=== PATIENT | female | born 1940 | race African-American/Black ===

== ENCOUNTER → 2017-01-13 | Outpatient (CLI) | payer MEDICARE, MEDICAID | END | disposition home or self-care (01) | LOC: CARD 01-06 09:53 | PROVIDERS: ATTEND Psychiatry & Neurology Neurology | DX: I69.30 Unspecified sequelae of cerebral infarction (principal) ==

== ENCOUNTER 2019-05-12 11:49 | Emergency (ER) | payer MEDICARE, MEDICAID ==
[~2019-05-12] VITALS: Ht 167.6 cm; Wt 78.0 kg
[~2019-05-12 11:49] MED LIST: ALLO100T MT; AMLO10TA80 MT; ATOR40TA70 MT; CLON0.2T MT; DOCU250C14 MT; FAMO20TA8 MT; FOLI-43 MT; HYDR100T26 MT; LEVE750T4 MT; LEVO75TA7 MT; LOSA100T32 MT; MONT10TA24 MT; NIFE20CA PO
[2019-05-12] MEDS ORDERED: IPRATROPIUM BROMIDE (0.02%) 0.5MG/2.5ML NEB HHN STA (12:07)
[2019-05-12] MEDS ORDERED: ALBUTEROL (0.083%) 2.5MG/3ML NEB HHN STA (12:07)
[2019-05-12 12:36] LABS: BASOPHILS % 0.5 % (0.0-2.0); EOSINOPHILS % 2.5 % (0.0-5.0); HEMATOCRIT. 29.2 % (36.0-48.0); HEMOGLOBIN. 9.4 g/dL (12.0-16.0); LYMPHOCYTES % 34.5 % (20.0-50.0); MEAN CORPUSCULAR HEMOGLOBIN 28.5 pg (28.0-32.0); MEAN CORPUSCULAR VOLUME 88.8 fL (81.0-99.0); MEAN PLATELET VOLUME 9.3 fl (7.4-10.4); MONOCYTES % 6.1 % (2.0-8.0); NEUTROPHILS % 56.4 % (40.0-76.0); PLATELET 142 x1000/uL (130-400); RED BLOOD CELL COUNT 3.28 mill/uL (4.2-5.4); RED CELL DISTRIBUTION WIDTH 17.4 % (11.6-14.6)
[2019-05-12 12:42] LABS: CHLORIDE 118 mEq/L (98-107)
[2019-05-12 15:03] VITALS: BP 140/51
== END 2019-05-12 15:04 | disposition home or self-care (01) ==
LOC: ER 12:54
DX: S09.8XXA Other specified injuries of head, initial encounter (principal); W01.198A Fall on same level from slipping, tripping and stumbling with subsequent striking against other object, initial encounter; Y93.01 Activity, walking, marching and hiking; Y92.018 Other place in single-family (private) house as the place of occurrence of the external cause; R03.0 Elevated blood-pressure reading, without diagnosis of hypertension; I69.354 Hemiplegia and hemiparesis following cerebral infarction affecting left non-dominant side; J45.909 Unspecified asthma, uncomplicated; I10 Essential (primary) hypertension
CPT/HCPCS: 36415; 70450; 70551; 71045; 80053; 84484; 85025; 85610; 93005; 94640; 99284; J7611

== ENCOUNTER 2019-10-06 20:00 | Inpatient (IN) | payer MEDICARE, MEDICAID ==
[~2019-10-06] VITALS: Ht 160 cm; Wt 84.8 kg
[~2019-10-06 20:00] MED LIST changes: -MONT10TA24 MT; +MONT10TA26 MT
[2019-10-06] MEDS ORDERED: ONDANSETRON HCL 4MG/2ML INJ IV STA (20:15)
[2019-10-06] MEDS ORDERED: METHYLPREDNISOLONE SOD SUCC 125 MG/2 ML VIAL IV STA (20:17)
[2019-10-06] MEDS ORDERED: IPRATROPIUM/ALBUTEROL 0.5-3(2.5)MG/3ML NEB HHN ONE (20:30)
[2019-10-06] MEDS ORDERED: LORAZEPAM 2MG/ML CPJ IV ONE (20:30)
[2019-10-06] MEDS ORDERED: MAGNESIUM 2 G PREMIX 50 ML IV ONE (20:30)
[2019-10-06] MEDS ORDERED: LEVOFLOXACIN 750MG PREMIX 150 ML IV ONE (20:30)
[2019-10-06 21:38] LABS: BASOPHILS % 0.5 % (0.0-2.0); EOSINOPHILS % 0.7 % (0.0-5.0); HEMATOCRIT. 32.3 % (36.0-48.0); HEMOGLOBIN. 10.5 g/dL (12.0-16.0); LYMPHOCYTES % 35.3 % (20.0-50.0); MEAN CORPUSCULAR HEMOGLOBIN 29.1 pg (28.0-32.0); MEAN CORPUSCULAR VOLUME 89.3 fL (81.0-99.0); MEAN PLATELET VOLUME 10.1 fl (7.4-10.4); MONOCYTES % 8.1 % (2.0-8.0); NEUTROPHILS % 55.4 % (40.0-76.0); PLATELET 167 x1000/uL (130-400); RED BLOOD CELL COUNT 3.61 mill/uL (4.2-5.4); RED CELL DISTRIBUTION WIDTH 16.7 % (11.6-14.6)
[2019-10-06 21:46] LABS: CHLORIDE 115 mEq/L (98-107)
[2019-10-06 21:51] LABS: ETHANOL BLOOD < 10 mg/dL
[2019-10-06 21:53] LABS: LDL CHOLESTEROL 81 mg/dL (5-100)
[2019-10-06 21:54] LABS: CREATINE KINASE 68 IU/L (26-192)
[2019-10-06 21:58] LABS: D-DIMER 3.54 mg/L FEU (<0.50); INR 1.1; PROTHROMBIN TIME 11.4 sec (9.6-11.0)
[2019-10-07 09:45] VITALS: BP 117/43
[2019-10-07 10:00] VITALS: BP 117/43
[2019-10-07] MEDS ORDERED: ACETAMINOPHEN 325MG TABLET PO PRN (10:00)
[2019-10-07] MEDS ORDERED: IPRATROPIUM/ALBUTEROL 0.5-3(2.5)MG/3ML NEB HHN PRN (10:00)
[2019-10-07] MEDS ORDERED: ONDANSETRON HCL 4MG/2ML INJ IV PRN (10:00)
[2019-10-07 12:00] VITALS: BP 120/70
[2019-10-07] MEDS: METHYLPREDNISOLONE SOD SUCC 40 MG/ML VIAL IV SCH ×3 (12:39→21:34)
[2019-10-07] MEDS: CLOPIDOGREL 75MG TABLET PO SCH (12:39)
[2019-10-07] MEDS: SODIUM CHLORIDE 0.45% 1,000 ML IV SCH (12:41)
[2019-10-07] MEDS: ENOXAPARIN 30MG/0.3ML SYR SUBCUT SCH (12:41)
[2019-10-07] MEDS ORDERED: SODIUM BICARBONATE 8.4% 1 MEQ/ML 50ML SYR IV SCH ×2 (13:00→14:00)
[2019-10-07] MEDS: IPRATROPIUM/ALBUTEROL 0.5-3(2.5)MG/3ML NEB HHN SCH ×3 (13:04→21:20)
[2019-10-07 13:22] LABS: BG BASE EXCESS -8.8 mmol/L (-2.0-2.0); BG CARBOXYHEMOGLOBIN 0.3 % (0.5-1.5); BG HCO3 ACT 16.5 mmol/L (22.0-26.0); BG METHEMOGLOBIN 0.3 % (0.0-1.5); BG OXYHEMOGLOBIN 95.4 % (94.0-97.0); BG PCO2 33.2 mmHg (35.0-45.0); BG PH 7.314 (7.350-7.450); BG PO2 88.8 mmHg (75.0-100.0); BG SAMPLE SITE RIGHT RADIAL; BG VENT MODE ROOM AIR
[2019-10-07] MEDS: CITRIC ACID/SODIUM CITRATE SOLN 15ML UDC PO SCH ×2 (13:59→17:52)
[2019-10-07] MEDS ORDERED: LEVO75TA7 MT (14:54)
[2019-10-07] MEDS ORDERED: AMLO10TA80 MT (14:54)
[2019-10-07] MEDS ORDERED: NIFE20CA PO (14:54)
[2019-10-07] MEDS ORDERED: ALLO100T MT (14:54)
[2019-10-07] MEDS ORDERED: CLON0.2T MT (14:54)
[2019-10-07] MEDS ORDERED: HYDR100T26 MT (14:54)
[2019-10-07] MEDS ORDERED: ATOR40TA70 MT (14:54)
[2019-10-07] MEDS ORDERED: DOCU250C14 MT (14:54)
[2019-10-07] MEDS ORDERED: LEVE750T4 MT (14:54)
[2019-10-07] MEDS ORDERED: FAMO20TA8 MT (14:54)
[2019-10-07] MEDS ORDERED: LOSA100T32 MT (14:54)
[2019-10-07] MEDS ORDERED: FOLI-43 MT (14:54)
[2019-10-07] MEDS ORDERED: MONT10TA26 MT (14:54)
[2019-10-07] MEDS ORDERED: SODIUM POLYSTYRENE SULFONATE 15 G/60 ML BOT PO SCH (15:00)
[2019-10-07] MEDS ORDERED: INSULIN REGULAR (HUMULIN R) UD 100 UNITS/ML SYR IV SCH (15:00)
[2019-10-07] MEDS ORDERED: CALCIUM GLUCONATE 1,000 MG in DEXT 5% WATER 90 ML IV SCH (15:00)
[2019-10-07] MEDS ORDERED: DEXTROSE 50% WATER 50ML SYRINGE IV SCH (15:00)
[2019-10-07 20:00] VITALS: BP 123/56
[2019-10-07] MEDS: ATORVASTATIN CALCIUM 40MG TABLET PO SCH (21:34)
[2019-10-07] MEDS: LEVETIRACETAM 500MG TABLET PO SCH (21:34)
[2019-10-07] MEDS: FAMOTIDINE 20MG TABLET PO SCH (21:34)
[2019-10-07] MEDS: CLONAZEPAM 0.5MG TABLET PO SCH (21:34)
[2019-10-08] VITALS: BP 137/49
[2019-10-08] MEDS: IPRATROPIUM/ALBUTEROL 0.5-3(2.5)MG/3ML NEB HHN SCH ×6 (00:43→21:13)
[2019-10-08 04:00] VITALS: BP 100/64
[2019-10-08] MEDS: METHYLPREDNISOLONE SOD SUCC 40 MG/ML VIAL IV SCH ×2 (05:08→13:57)
[2019-10-08] MEDS: SODIUM CHLORIDE 0.45% 1,000 ML IV SCH ×2 (05:08→13:57)
[2019-10-08] MEDS: CLONAZEPAM 0.5MG TABLET PO SCH ×3 (05:08→21:56)
[2019-10-08 07:08] LABS: BASOPHILS % 0.1 % (0.0-2.0); HEMATOCRIT. 27.3 % (36.0-48.0); HEMOGLOBIN. 8.9 g/dL (12.0-16.0); LYMPHOCYTES % 8.9 % (20.0-50.0); MEAN CORPUSCULAR HEMOGLOBIN 28.6 pg (28.0-32.0); MEAN CORPUSCULAR VOLUME 87.4 fL (81.0-99.0); MEAN PLATELET VOLUME 10.7 fl (7.4-10.4); MONOCYTES % 2.1 % (2.0-8.0); NEUTROPHILS % 88.9 % (40.0-76.0); PLATELET 122 x1000/uL (130-400); RED BLOOD CELL COUNT 3.12 mill/uL (4.2-5.4); RED CELL DISTRIBUTION WIDTH 16.5 % (11.6-14.6)
[2019-10-08 08:00] VITALS: BP 115/36
[2019-10-08] MEDS: CITRIC ACID/SODIUM CITRATE SOLN 15ML UDC PO SCH ×3 (08:49→17:46)
[2019-10-08] MEDS: CLOPIDOGREL 75MG TABLET PO SCH (08:49)
[2019-10-08] MEDS: LEVETIRACETAM 500MG TABLET PO SCH ×2 (08:49→21:56)
[2019-10-08] MEDS: ENOXAPARIN 30MG/0.3ML SYR SUBCUT SCH (08:50)
[2019-10-08 09:48] LABS: CHLORIDE 113 mEq/L (98-107)
[2019-10-08 09:57] LABS: PHOSPHORUS 5.2 mg/dL (2.5-4.9)
[2019-10-08 09:58] LABS: CREATINE KINASE 92 IU/L (26-192)
[2019-10-08 12:00] VITALS: BP 108/36
[2019-10-08] MEDS ORDERED: DEXTROSE 50% WATER 50ML SYRINGE IV PRN (12:45)
[2019-10-08 16:00] VITALS: BP 112/67
[2019-10-08] MEDS: BLOOD SUGAR DIAGNOSTIC STRIP TEST SCH ×2 (17:10→21:49)
[2019-10-08] MEDS: INSULIN LISPRO 100 UNITS/ML SUBCUT SCH ×2 (17:49→22:04)
[2019-10-08 20:00] VITALS: BP 120/43
[2019-10-08] MEDS: ATORVASTATIN CALCIUM 40MG TABLET PO SCH (21:56)
[2019-10-08] MEDS: FAMOTIDINE 20MG TABLET PO SCH (21:56)
[2019-10-09] VITALS: BP 116/66
[2019-10-09] MEDS: IPRATROPIUM/ALBUTEROL 0.5-3(2.5)MG/3ML NEB HHN SCH ×6 (00:43→21:38)
[2019-10-09 04:00] VITALS: BP 125/44
[2019-10-09] MEDS: BLOOD SUGAR DIAGNOSTIC STRIP TEST SCH ×4 (05:53→20:02)
[2019-10-09] MEDS: CLONAZEPAM 0.5MG TABLET PO SCH ×3 (06:19→21:49)
[2019-10-09] MEDS: INSULIN LISPRO 100 UNITS/ML SUBCUT SCH ×4 (06:22→20:16)
[2019-10-09 06:25] LABS: BASOPHILS % 0.1 % (0.0-2.0); HEMOGLOBIN. 8.9 g/dL (12.0-16.0); LYMPHOCYTES % 7.8 % (20.0-50.0); MEAN CORPUSCULAR HEMOGLOBIN 28.8 pg (28.0-32.0); MEAN CORPUSCULAR VOLUME 87.5 fL (81.0-99.0); MEAN PLATELET VOLUME 10.7 fl (7.4-10.4); MONOCYTES % 3.7 % (2.0-8.0); NEUTROPHILS % 88.4 % (40.0-76.0); PLATELET 123 x1000/uL (130-400); RED BLOOD CELL COUNT 3.08 mill/uL (4.2-5.4)
[2019-10-09 08:00] VITALS: BP 128/51
[2019-10-09] MEDS: PREDNISONE 20MG TABLET PO SCH (08:37)
[2019-10-09] MEDS: LEVETIRACETAM 500MG TABLET PO SCH ×2 (08:37→20:13)
[2019-10-09] MEDS: CLOPIDOGREL 75MG TABLET PO SCH (08:37)
[2019-10-09] MEDS: ENOXAPARIN 30MG/0.3ML SYR SUBCUT SCH (08:38)
[2019-10-09] MEDS: CITRIC ACID/SODIUM CITRATE SOLN 30ML UDC PO SCH ×3 (08:44→17:00)
[2019-10-09 12:00] VITALS: BP 113/60
[2019-10-09 16:00] VITALS: BP 128/92
[2019-10-09 20:00] VITALS: BP 129/52
[2019-10-09] MEDS: FAMOTIDINE 20MG TABLET PO SCH (20:13)
[2019-10-09] MEDS: ATORVASTATIN CALCIUM 40MG TABLET PO SCH (20:13)
[2019-10-09] MEDS: INSULIN GLARGINE UD 100 UNITS/ML SYR SUBCUT SCH (21:56)
[2019-10-10] VITALS (7 sets, daily range): BP systolic 111–159; BP diastolic 50–66
[2019-10-10] MEDS: IPRATROPIUM/ALBUTEROL 0.5-3(2.5)MG/3ML NEB HHN SCH ×6 (01:39→21:36)
[2019-10-10] MEDS: BLOOD SUGAR DIAGNOSTIC STRIP TEST SCH ×4 (06:18→21:25)
[2019-10-10] MEDS: CLONAZEPAM 0.5MG TABLET PO SCH ×3 (06:22→21:25)
[2019-10-10] MEDS: INSULIN LISPRO 100 UNITS/ML SUBCUT SCH ×4 (06:25→21:26)
[2019-10-10 06:30] LABS: HEMOGLOBIN. 8.4 g/dL (12.0-16.0); LYMPHOCYTES % 10.3 % (20.0-50.0); MEAN CORPUSCULAR HEMOGLOBIN 29.3 pg (28.0-32.0); MONOCYTES % 5.1 % (2.0-8.0); NEUTROPHILS % 84.6 % (40.0-76.0); PLATELET 113 x1000/uL (130-400); RED BLOOD CELL COUNT 2.87 mill/uL (4.2-5.4); RED CELL DISTRIBUTION WIDTH 16.8 % (11.6-14.6)
[2019-10-10] MEDS: PREDNISONE 20MG TABLET PO SCH (09:14)
[2019-10-10] MEDS: LEVETIRACETAM 500MG TABLET PO SCH ×2 (09:14→21:25)
[2019-10-10] MEDS: CLOPIDOGREL 75MG TABLET PO SCH (09:14)
[2019-10-10] MEDS: CITRIC ACID/SODIUM CITRATE SOLN 30ML UDC PO SCH ×3 (09:14→18:02)
[2019-10-10] MEDS: ENOXAPARIN 30MG/0.3ML SYR SUBCUT SCH (09:15)
[2019-10-10] MEDS: INSULIN GLARGINE UD 100 UNITS/ML SYR SUBCUT SCH ×2 (10:59→21:30)
[2019-10-10] MEDS: FAMOTIDINE 20MG TABLET PO SCH (21:25)
[2019-10-10] MEDS: ATORVASTATIN CALCIUM 40MG TABLET PO SCH (21:25)
== END 2019-10-10 23:25 | DRG 69 ==
LOC: ER 20:00 → 5WST 22:05 → EDBEDREQSVC 22:11 → EDBEDREQ 22:11 → EDBEDREQTM 22:11 → ENRESERV 10-07 08:02
PROVIDERS: ADMIT Internal Medicine; ATTEND Internal Medicine
DX: G45.9 Transient cerebral ischemic attack, unspecified (principal); G93.41 Metabolic encephalopathy; N17.9 Acute kidney failure, unspecified; R47.01 Aphasia; E44.0 Moderate protein-calorie malnutrition; E87.2 Acidosis; N18.9 Chronic kidney disease, unspecified; E11.22 Type 2 diabetes mellitus with diabetic chronic kidney disease; I12.9 Hypertensive chronic kidney disease with stage 1 through stage 4 chronic kidney disease, or unspecified chronic kidney disease; E87.5 Hyperkalemia; J44.9 Chronic obstructive pulmonary disease, unspecified; G40.909 Epilepsy, unspecified, not intractable, without status epilepticus; B19.20 Unspecified viral hepatitis C without hepatic coma; D64.9 Anemia, unspecified; E03.9 Hypothyroidism, unspecified; E66.9 Obesity, unspecified; E78.5 Hyperlipidemia, unspecified; K57.90 Diverticulosis of intestine, part unspecified, without perforation or abscess without bleeding; R26.89 Other abnormalities of gait and mobility; G31.89 Other specified degenerative diseases of nervous system; I27.20 Pulmonary hypertension, unspecified; I08.3 Combined rheumatic disorders of mitral, aortic and tricuspid valves; R32 Unspecified urinary incontinence; Z82.49 Family history of ischemic heart disease and other diseases of the circulatory system; Z68.33 Body mass index [BMI] 33.0-33.9, adult; Z88.0 Allergy status to penicillin; Z88.8 Allergy status to other drugs, medicaments and biological substances; Z88.6 Allergy status to analgesic agent; Z91.041 Radiographic dye allergy status; Z79.899 Other long term (current) drug therapy; Z93.0 Tracheostomy status; I69.320 Aphasia following cerebral infarction
CPT/HCPCS: 36415; 36600; 70551; 71045; 76770; 80048; 80053; 80320; 82140; 82375; 82550; 82805; 82962; 83605; 83721; 83735; 83880; 84100; 84132; 84443; 84484; 85025; 85379; 93005; 93306; 93970; 94640; 95816; 96365; 97162; 97530; 99291; J0610; J1650; J1815; J1956; J2060; J2405; J2920; J2930; J3475; J3490; J7060; J7512; G0480

== ENCOUNTER 2019-10-10 23:30 | Inpatient (IN) | payer MEDICARE, MEDICAID ==
[~2019-10-10] VITALS: Ht 160 cm; Wt 80.7 kg
[2019-10-10 23:30] VITALS: BP 139/68
[2019-10-11] MEDS ORDERED: INSULIN GLARGINE UD 100 UNITS/ML SYR SUBCUT SCH (01:30)
[2019-10-11] MEDS ORDERED: DEXTROSE 50% WATER 50ML SYRINGE IV PRN (01:30)
[2019-10-11] MEDS ORDERED: ONDANSETRON HCL 4MG TABLET PO PRN (01:45)
[2019-10-11] MEDS: IPRATROPIUM/ALBUTEROL 0.5-3(2.5)MG/3ML NEB HHN SCH ×5 (05:24→20:33)
[2019-10-11] MEDS: BLOOD SUGAR DIAGNOSTIC STRIP TEST SCH ×4 (05:54→21:53)
[2019-10-11] MEDS: CLONAZEPAM 1MG TABLET PO SCH ×3 (06:17→21:55)
[2019-10-11 08:00] VITALS: BP 176/63
[2019-10-11] MEDS: CLOPIDOGREL 75MG TABLET PO SCH (08:05)
[2019-10-11] MEDS: LEVETIRACETAM 500MG/5ML CUP PO SCH ×2 (08:05→22:39)
[2019-10-11] MEDS: INSULIN LISPRO 100 UNITS/ML SUBCUT SCH ×4 (08:16→22:37)
[2019-10-11] MEDS ORDERED: PREDNISONE 20MG TABLET PO SCH ×2 (09:00)
[2019-10-11] MEDS ORDERED: CITRIC ACID/SODIUM CITRATE SOLN 15ML UDC PO SCH (09:00)
[2019-10-11] MEDS: CITRIC ACID/SODIUM CITRATE SOLN 30ML UDC PO SCH ×3 (09:49→17:04)
[2019-10-11 09:53] LABS: HEMATOCRIT. 28.3 % (36.0-48.0); HEMOGLOBIN. 9.1 g/dL (12.0-16.0); MEAN CORPUSCULAR HEMOGLOBIN 28.2 pg (28.0-32.0); MEAN CORPUSCULAR VOLUME 87.2 fL (81.0-99.0); MEAN PLATELET VOLUME 11.2 fl (7.4-10.4); PLATELET 124 x1000/uL (130-400); RED BLOOD CELL COUNT 3.25 mill/uL (4.2-5.4); RED CELL DISTRIBUTION WIDTH 16.3 % (11.6-14.6)
[2019-10-11 09:54] LABS: HEMATOCRIT 27.6 % (36.0-48.0); HEMOGLOBIN 9.1 g/dL (12.0-16.0); MEAN CORPUSCULAR HEMOGLOBIN 28.5 pg (28.0-32.0); MEAN CORPUSCULAR VOLUME 86.9 fL (81.0-99.0); PLATELET 117 x1000/uL (130-400); RED BLOOD CELL COUNT 3.18 mill/uL (4.2-5.4); RED CELL DISTRIBUTION WIDTH 16.3 % (11.6-14.6)
[2019-10-11] MEDS: INSULIN GLARGINE UD 100 UNITS/ML SYR SUBCUT SCH ×2 (09:56→22:38)
[2019-10-11] MEDS: ENOXAPARIN 30MG/0.3ML SYR SUBCUT SCH (14:43)
[2019-10-11 16:57] LABS: PLATELET ESTIMATE NORMAL
[2019-10-11 19:39] LABS: TOTAL IRON BINDING CAPACITY 175 ug/dL (250-450)
[2019-10-11 20:00] VITALS: BP 161/66
[2019-10-11 21:00] VITALS: BP 133/66
[2019-10-11] MEDS: ATORVASTATIN CALCIUM 40MG TABLET PO SCH (22:34)
[2019-10-11] MEDS: FAMOTIDINE 20MG TABLET PO SCH (22:34)
[2019-10-12] MEDS: BUDESONIDE 0.5MG/2ML NEB HHN SCH ×2 (00:36→07:50)
[2019-10-12] MEDS: IPRATROPIUM/ALBUTEROL 0.5-3(2.5)MG/3ML NEB HHN SCH ×6 (00:36→20:24)
[2019-10-12 04:50] VITALS: BP 134/67
[2019-10-12] MEDS: INSULIN LISPRO 100 UNITS/ML SUBCUT SCH ×4 (06:36→21:00)
[2019-10-12] MEDS: BLOOD SUGAR DIAGNOSTIC STRIP TEST SCH ×4 (06:36→21:00)
[2019-10-12] MEDS: CLONAZEPAM 1MG TABLET PO SCH ×3 (06:37→21:59)
[2019-10-12 08:33] VITALS: BP 177/65
[2019-10-12] MEDS: LEVETIRACETAM 500MG/5ML CUP PO SCH ×2 (09:06→22:00)
[2019-10-12] MEDS: CLOPIDOGREL 75MG TABLET PO SCH (09:06)
[2019-10-12] MEDS: CITRIC ACID/SODIUM CITRATE SOLN 30ML UDC PO SCH ×3 (09:07→17:38)
[2019-10-12] MEDS: INSULIN GLARGINE UD 100 UNITS/ML SYR SUBCUT SCH ×2 (11:15→22:00)
[2019-10-12 12:48] LABS: HEMATOCRIT. 32.2 % (36.0-48.0); HEMOGLOBIN. 10.3 g/dL (12.0-16.0); MEAN CORPUSCULAR HEMOGLOBIN 28.6 pg (28.0-32.0); MEAN CORPUSCULAR VOLUME 89.9 fL (81.0-99.0); PLATELET 128 x1000/uL (130-400); RED BLOOD CELL COUNT 3.59 mill/uL (4.2-5.4); RED CELL DISTRIBUTION WIDTH 16.7 % (11.6-14.6)
[2019-10-12 13:47] LABS: PLATELET ESTIMATE SLIGHTLY DECREASED
[2019-10-12] MEDS: ENOXAPARIN 30MG/0.3ML SYR SUBCUT SCH (14:34)
[2019-10-12 20:00] VITALS: BP 157/61
[2019-10-12] MEDS: AMLODIPINE 5MG TABLET PO SCH (21:00)
[2019-10-12] MEDS: FAMOTIDINE 20MG TABLET PO SCH (21:59)
[2019-10-12] MEDS: ATORVASTATIN CALCIUM 40MG TABLET PO SCH (22:00)
[2019-10-13] MEDS: IPRATROPIUM/ALBUTEROL 0.5-3(2.5)MG/3ML NEB HHN SCH ×4 (00:43→11:16)
[2019-10-13] MEDS: BLOOD SUGAR DIAGNOSTIC STRIP TEST SCH ×4 (06:32→21:00)
[2019-10-13] MEDS: INSULIN LISPRO 100 UNITS/ML SUBCUT SCH ×4 (06:32→21:00)
[2019-10-13] MEDS: CLONAZEPAM 1MG TABLET PO SCH (06:32)
[2019-10-13 06:33] LABS: HEMATOCRIT. 34.5 % (36.0-48.0); HEMOGLOBIN. 11.3 g/dL (12.0-16.0); MEAN CORPUSCULAR HEMOGLOBIN 28.9 pg (28.0-32.0); MEAN CORPUSCULAR VOLUME 88.7 fL (81.0-99.0); MEAN PLATELET VOLUME 11.3 fl (7.4-10.4); PLATELET 119 x1000/uL (130-400); RED BLOOD CELL COUNT 3.89 mill/uL (4.2-5.4); RED CELL DISTRIBUTION WIDTH 16.6 % (11.6-14.6)
[2019-10-13] MEDS: BUDESONIDE 0.5MG/2ML NEB HHN SCH ×2 (07:39→20:18)
[2019-10-13 08:00] VITALS: BP 143/77
[2019-10-13 08:04] LABS: PLATELET ESTIMATE DECREASED
[2019-10-13] MEDS: IPRATROPIUM BROMIDE (0.02%) 0.5MG/2.5ML NEB HHN SCH ×3 (10:00→20:18)
[2019-10-13] MEDS: INSULIN GLARGINE UD 100 UNITS/ML SYR SUBCUT SCH ×2 (10:00→22:17)
[2019-10-13] MEDS: CITRIC ACID/SODIUM CITRATE SOLN 30ML UDC PO SCH ×3 (10:48→18:23)
[2019-10-13] MEDS: LEVETIRACETAM 500MG/5ML CUP PO SCH ×2 (10:49→22:00)
[2019-10-13] MEDS: ACETAMINOPHEN 650MG/20.3ML UDC PO PRN (10:49)
[2019-10-13] MEDS: AMLODIPINE 5MG TABLET PO SCH ×2 (10:50→22:18)
[2019-10-13] MEDS: CLOPIDOGREL 75MG TABLET PO SCH (10:50)
[2019-10-13 11:10] LABS: CHLORIDE 109 mEq/L (98-107)
[2019-10-13] MEDS: LEVOTHYROXINE SODIUM 50MCG TABLET PO SCH (11:15)
[2019-10-13] MEDS: ALLOPURINOL 100 MG TABLET PO SCH (11:15)
[2019-10-13 11:18] LABS: PHOSPHORUS 4.2 mg/dL (2.5-4.9)
[2019-10-13 11:43] LABS: BG BASE EXCESS -3.4 mmol/L (-2.0-2.0); BG CARBOXYHEMOGLOBIN 0.3 % (0.5-1.5); BG DEOXYHEMOGLOBIN 4.1 % (0.0-5.0); BG HCO3 ACT 21.5 mmol/L (22.0-26.0); BG METHEMOGLOBIN 0.1 % (0.0-1.5); BG OXYGEN SATURATION 95.9 % (92.0-98.5); BG OXYHEMOGLOBIN 95.5 % (94.0-97.0); BG PH 7.371 (7.350-7.450); BG PO2 89.4 mmHg (75.0-100.0); BG SAMPLE SITE RIGHT RADIAL; BG TOTAL HEMOGLOBIN 10.4 g/dL (12.0-18.0); BG VENT MODE NASAL CANNULA
[2019-10-13] MEDS ORDERED: LIDOCAINE HCL/PF 1% 2ML VIAL ONE (12:17)
[2019-10-13 12:18] LABS: HEMATOCRIT. 31.4 % (36.0-48.0); HEMOGLOBIN. 10.1 g/dL (12.0-16.0); MEAN CORPUSCULAR HEMOGLOBIN 28.8 pg (28.0-32.0); MEAN CORPUSCULAR VOLUME 89.1 fL (81.0-99.0); MEAN PLATELET VOLUME 10.4 fl (7.4-10.4); PLATELET 93 x1000/uL (130-400); RED BLOOD CELL COUNT 3.52 mill/uL (4.2-5.4); RED CELL DISTRIBUTION WIDTH 16.6 % (11.6-14.6)
[2019-10-13 12:49] LABS: PLATELET ESTIMATE DECREASED
[2019-10-13] MEDS: DEXT 5%/0.45% NACL 1000ML 1,000 ML IV SCH (14:29)
[2019-10-13] MEDS: ENOXAPARIN 30MG/0.3ML SYR SUBCUT SCH (14:29)
[2019-10-13] MEDS: FUROSEMIDE 40MG/4ML VIAL IVP SCH (14:30)
[2019-10-13 14:40] VITALS: BP 128/56
[2019-10-13 18:36] LABS: CLARITY URINE CLOUDY (CLEAR); COLOR URINE YELLOW (YELLOW); KETONES URINE NEGATIVE (NEGATIVE); LEUKOCYTE ESTERASE URINE 1+ (NEGATIVE); NITRITE URINE NEGATIVE (NEGATIVE); OCCULT BLOOD URINE NEGATIVE (NEGATIVE); PROTEIN URINE 3+ (NEGATIVE); SPECIFIC GRAVITY URINE 1.013 (1.005-1.030); UROBILINOGEN URINE 0.2 E.U./dL (0.2-1.0)
[2019-10-13 21:00] VITALS: BP 164/41
[2019-10-13] MEDS: ATORVASTATIN CALCIUM 40MG TABLET PO SCH (22:00)
[2019-10-13] MEDS: FAMOTIDINE 20MG TABLET PO SCH (22:00)
[2019-10-14] VITALS: BP 135/70
[2019-10-14] MEDS: IPRATROPIUM BROMIDE (0.02%) 0.5MG/2.5ML NEB HHN SCH ×4 (01:56→19:56)
[2019-10-14] MEDS: LEVOTHYROXINE SODIUM 50MCG TABLET PO SCH (06:02)
[2019-10-14] MEDS: BLOOD SUGAR DIAGNOSTIC STRIP TEST SCH ×4 (06:32→21:48)
[2019-10-14] MEDS: INSULIN LISPRO 100 UNITS/ML SUBCUT SCH ×4 (06:33→21:00)
[2019-10-14] MEDS: DEXT 5%/0.45% NACL 1000ML 1,000 ML IV SCH (06:43)
[2019-10-14] MEDS ORDERED: LEVOFLOXACIN 250MG PREMIX 50 ML IV SCH ×2 (08:15→10:00)
[2019-10-14 08:31] VITALS: BP 167/62
[2019-10-14] MEDS: CITRIC ACID/SODIUM CITRATE SOLN 30ML UDC PO SCH ×3 (09:46→17:06)
[2019-10-14] MEDS: LEVETIRACETAM 500MG/5ML CUP PO SCH ×2 (09:46→21:47)
[2019-10-14] MEDS: ALLOPURINOL 100 MG TABLET PO SCH (09:46)
[2019-10-14] MEDS: FUROSEMIDE 40MG/4ML VIAL IVP SCH (09:46)
[2019-10-14] MEDS: CLOPIDOGREL 75MG TABLET PO SCH (09:46)
[2019-10-14] MEDS: AMLODIPINE 5MG TABLET PO SCH ×2 (09:47→21:45)
[2019-10-14] MEDS: INSULIN GLARGINE UD 100 UNITS/ML SYR SUBCUT SCH ×2 (10:34→22:00)
[2019-10-14 12:52] LABS: BASOPHILS % 0.3 % (0.0-2.0); EOSINOPHILS % 1.8 % (0.0-5.0); HEMATOCRIT. 25.8 % (36.0-48.0); HEMOGLOBIN. 8.5 g/dL (12.0-16.0); LYMPHOCYTES % 17.1 % (20.0-50.0); MEAN CORPUSCULAR HEMOGLOBIN 29.2 pg (28.0-32.0); MEAN CORPUSCULAR VOLUME 88.7 fL (81.0-99.0); MEAN PLATELET VOLUME 10.3 fl (7.4-10.4); MONOCYTES % 12.7 % (2.0-8.0); NEUTROPHILS % 68.1 % (40.0-76.0); PLATELET 58 x1000/uL (130-400); RED BLOOD CELL COUNT 2.91 mill/uL (4.2-5.4); RED CELL DISTRIBUTION WIDTH 16.1 % (11.6-14.6)
[2019-10-14] MEDS: CLONIDINE 0.1MG TABLET PO SCH ×2 (17:10→21:46)
[2019-10-14] MEDS: BUDESONIDE 0.5MG/2ML NEB HHN SCH (19:54)
[2019-10-14 20:00] VITALS: BP 132/60
[2019-10-14] MEDS: FAMOTIDINE 20MG TABLET PO SCH (21:45)
[2019-10-14] MEDS: ATORVASTATIN CALCIUM 40MG TABLET PO SCH (21:45)
[2019-10-14] MEDS: GUAIFENESIN-DM 200MG-20MG/10ML UDC PO PRN (21:47)
[2019-10-15] MEDS: IPRATROPIUM BROMIDE (0.02%) 0.5MG/2.5ML NEB HHN SCH ×5 (00:45→15:34)
[2019-10-15] MEDS: BLOOD SUGAR DIAGNOSTIC STRIP TEST SCH ×4 (06:32→20:06)
[2019-10-15] MEDS: LEVOTHYROXINE SODIUM 50MCG TABLET PO SCH (06:33)
[2019-10-15 07:29] LABS: HEMATOCRIT. 25.4 % (36.0-48.0); HEMOGLOBIN. 8.4 g/dL (12.0-16.0); MEAN CORPUSCULAR HEMOGLOBIN 28.9 pg (28.0-32.0); MEAN CORPUSCULAR VOLUME 87.7 fL (81.0-99.0); MEAN PLATELET VOLUME 11.1 fl (7.4-10.4); PLATELET 77 x1000/uL (130-400)
[2019-10-15] MEDS: BUDESONIDE 0.5MG/2ML NEB HHN SCH (08:13)
[2019-10-15 08:27] VITALS: BP 151/74
[2019-10-15] MEDS: INSULIN LISPRO 100 UNITS/ML SUBCUT SCH ×4 (09:00→20:18)
[2019-10-15] MEDS: LEVETIRACETAM 500MG/5ML CUP PO SCH ×2 (09:19→20:05)
[2019-10-15] MEDS: CLONIDINE 0.1MG TABLET PO SCH ×2 (09:19→20:06)
[2019-10-15] MEDS: AMLODIPINE 5MG TABLET PO SCH ×2 (09:19→20:05)
[2019-10-15] MEDS: CITRIC ACID/SODIUM CITRATE SOLN 30ML UDC PO SCH ×3 (09:19→16:24)
[2019-10-15] MEDS: ALLOPURINOL 100 MG TABLET PO SCH (09:19)
[2019-10-15] MEDS: CLOPIDOGREL 75MG TABLET PO SCH (09:19)
[2019-10-15] MEDS: INSULIN GLARGINE UD 100 UNITS/ML SYR SUBCUT SCH ×2 (09:26→21:27)
[2019-10-15 10:37] LABS: PLATELET ESTIMATE DECREASED
[2019-10-15] MEDS: LEVOFLOXACIN 250MG TABLET PO SCH (11:34)
[2019-10-15 20:00] VITALS: BP 165/72
[2019-10-15] MEDS: FAMOTIDINE 20MG TABLET PO SCH (20:05)
[2019-10-15] MEDS: ATORVASTATIN CALCIUM 40MG TABLET PO SCH (20:05)
[2019-10-15 22:00] VITALS: BP 148/74
[2019-10-16] MEDS: IPRATROPIUM BROMIDE (0.02%) 0.5MG/2.5ML NEB HHN SCH ×7 (01:10→22:03)
[2019-10-16] MEDS: BLOOD SUGAR DIAGNOSTIC STRIP TEST SCH ×4 (05:36→20:50)
[2019-10-16] MEDS: LEVOTHYROXINE SODIUM 50MCG TABLET PO SCH (06:06)
[2019-10-16] MEDS: INSULIN LISPRO 100 UNITS/ML SUBCUT SCH ×4 (06:27→20:57)
[2019-10-16] MEDS: LEVETIRACETAM 500MG/5ML CUP PO SCH ×2 (08:24→20:49)
[2019-10-16] MEDS: CITRIC ACID/SODIUM CITRATE SOLN 30ML UDC PO SCH ×3 (08:24→16:56)
[2019-10-16] MEDS: CLONIDINE 0.1MG TABLET PO SCH ×2 (08:25→20:50)
[2019-10-16] MEDS: AMLODIPINE 5MG TABLET PO SCH ×2 (08:25→20:49)
[2019-10-16] MEDS: CLOPIDOGREL 75MG TABLET PO SCH (08:25)
[2019-10-16] MEDS: ALLOPURINOL 100 MG TABLET PO SCH (08:25)
[2019-10-16 08:27] VITALS: BP 164/57
[2019-10-16] MEDS: INSULIN GLARGINE UD 100 UNITS/ML SYR SUBCUT SCH ×2 (09:39→21:34)
[2019-10-16] MEDS: LEVOFLOXACIN 250MG TABLET PO SCH (10:27)
[2019-10-16 20:00] VITALS: BP 146/46
[2019-10-16] MEDS: ATORVASTATIN CALCIUM 40MG TABLET PO SCH (20:49)
[2019-10-16] MEDS: FAMOTIDINE 20MG TABLET PO SCH (20:50)
[2019-10-17] MEDS: GUAIFENESIN-DM 200MG-20MG/10ML UDC PO PRN ×2 (01:05→21:45)
[2019-10-17] MEDS: BLOOD SUGAR DIAGNOSTIC STRIP TEST SCH ×4 (05:42→21:15)
[2019-10-17] MEDS: LEVOTHYROXINE SODIUM 50MCG TABLET PO SCH (06:20)
[2019-10-17] MEDS: INSULIN LISPRO 100 UNITS/ML SUBCUT SCH ×4 (06:23→21:44)
[2019-10-17 06:38] LABS: BASOPHILS % 0.2 % (0.0-2.0); EOSINOPHILS % 2.4 % (0.0-5.0); HEMATOCRIT. 25.7 % (36.0-48.0); HEMOGLOBIN. 8.5 g/dL (12.0-16.0); MEAN CORPUSCULAR HEMOGLOBIN 29.2 pg (28.0-32.0); MEAN CORPUSCULAR VOLUME 88.2 fL (81.0-99.0); MONOCYTES % 12.4 % (2.0-8.0); PLATELET 74 x1000/uL (130-400); RED BLOOD CELL COUNT 2.92 mill/uL (4.2-5.4); RED CELL DISTRIBUTION WIDTH 15.8 % (11.6-14.6)
[2019-10-17] MEDS: IPRATROPIUM BROMIDE (0.02%) 0.5MG/2.5ML NEB HHN SCH ×4 (07:41→21:34)
[2019-10-17] MEDS: CLONIDINE 0.1MG TABLET PO SCH ×2 (08:45→20:53)
[2019-10-17] MEDS: LEVETIRACETAM 500MG/5ML CUP PO SCH ×2 (08:45→20:53)
[2019-10-17] MEDS: CITRIC ACID/SODIUM CITRATE SOLN 30ML UDC PO SCH ×3 (08:45→17:16)
[2019-10-17] MEDS: ALLOPURINOL 100 MG TABLET PO SCH (08:46)
[2019-10-17] MEDS: CLOPIDOGREL 75MG TABLET PO SCH (08:46)
[2019-10-17] MEDS: AMLODIPINE 5MG TABLET PO SCH ×2 (08:46→20:53)
[2019-10-17 08:56] VITALS: BP 164/52
[2019-10-17] MEDS: INSULIN GLARGINE UD 100 UNITS/ML SYR SUBCUT SCH ×2 (10:15→21:45)
[2019-10-17 10:46] VITALS: BP 138/63
[2019-10-17 20:00] VITALS: BP 144/57
[2019-10-17] MEDS: ATORVASTATIN CALCIUM 40MG TABLET PO SCH (20:53)
[2019-10-17] MEDS: FAMOTIDINE 20MG TABLET PO SCH (20:53)
[2019-10-18] MEDS: IPRATROPIUM BROMIDE (0.02%) 0.5MG/2.5ML NEB HHN SCH ×6 (01:21→20:59)
[2019-10-18] MEDS: BLOOD SUGAR DIAGNOSTIC STRIP TEST SCH ×4 (06:22→21:00)
[2019-10-18] MEDS: INSULIN LISPRO 100 UNITS/ML SUBCUT SCH ×4 (06:23→21:00)
[2019-10-18] MEDS: LEVOTHYROXINE SODIUM 50MCG TABLET PO SCH (06:23)
[2019-10-18 07:47] VITALS: BP 139/52
[2019-10-18] MEDS: LEVETIRACETAM 500MG/5ML CUP PO SCH ×2 (08:23→21:54)
[2019-10-18] MEDS: AMLODIPINE 5MG TABLET PO SCH ×2 (08:23→21:54)
[2019-10-18] MEDS: CITRIC ACID/SODIUM CITRATE SOLN 30ML UDC PO SCH (08:23)
[2019-10-18] MEDS: CLOPIDOGREL 75MG TABLET PO SCH (08:23)
[2019-10-18] MEDS: CLONIDINE 0.1MG TABLET PO SCH ×2 (08:23→22:33)
[2019-10-18] MEDS: ALLOPURINOL 100 MG TABLET PO SCH (08:23)
[2019-10-18] MEDS: LEVOFLOXACIN 250MG TABLET PO SCH (10:07)
[2019-10-18] MEDS: INSULIN GLARGINE UD 100 UNITS/ML SYR SUBCUT SCH ×2 (10:11→22:00)
[2019-10-18] MEDS: BUDESONIDE 0.5MG/2ML NEB HHN SCH ×2 (11:02→20:59)
[2019-10-18] MEDS ORDERED: GUAIFENESIN 200MG/10ML SUGAR FREE UDC PO NR (11:45)
[2019-10-18 16:45] LABS: BASOPHILS % 0.2 % (0.0-2.0); EOSINOPHILS % 2.3 % (0.0-5.0); HEMATOCRIT. 27.3 % (36.0-48.0); HEMOGLOBIN. 8.9 g/dL (12.0-16.0); LYMPHOCYTES % 25.7 % (20.0-50.0); MEAN CORPUSCULAR HEMOGLOBIN 29.1 pg (28.0-32.0); MEAN PLATELET VOLUME 10.5 fl (7.4-10.4); MONOCYTES % 11.6 % (2.0-8.0); NEUTROPHILS % 60.2 % (40.0-76.0); PLATELET 72 x1000/uL (130-400); RED BLOOD CELL COUNT 3.07 mill/uL (4.2-5.4); RED CELL DISTRIBUTION WIDTH 15.9 % (11.6-14.6)
[2019-10-18] MEDS: GUAIFENESIN 200MG/10ML SUGAR FREE UDC PO PRN (16:53)
[2019-10-18 20:00] VITALS: BP 137/60
[2019-10-18] MEDS: ATORVASTATIN CALCIUM 40MG TABLET PO SCH (21:54)
[2019-10-18] MEDS: FAMOTIDINE 20MG TABLET PO SCH (21:54)
[2019-10-19] MEDS: IPRATROPIUM BROMIDE (0.02%) 0.5MG/2.5ML NEB HHN SCH ×5 (00:19→22:30)
[2019-10-19] MEDS: BLOOD SUGAR DIAGNOSTIC STRIP TEST SCH ×4 (06:06→21:37)
[2019-10-19] MEDS: INSULIN LISPRO 100 UNITS/ML SUBCUT SCH ×4 (06:07→21:00)
[2019-10-19] MEDS: LEVOTHYROXINE SODIUM 50MCG TABLET PO SCH (06:17)
[2019-10-19 06:18] LABS: BASOPHILS % 0.2 % (0.0-2.0); EOSINOPHILS % 1.9 % (0.0-5.0); HEMATOCRIT. 24.9 % (36.0-48.0); HEMOGLOBIN. 8.1 g/dL (12.0-16.0); LYMPHOCYTES % 28.3 % (20.0-50.0); MEAN CORPUSCULAR HEMOGLOBIN 28.9 pg (28.0-32.0); MEAN CORPUSCULAR VOLUME 88.7 fL (81.0-99.0); MEAN PLATELET VOLUME 11.7 fl (7.4-10.4); NEUTROPHILS % 59.6 % (40.0-76.0); PLATELET 80 x1000/uL (130-400); RED BLOOD CELL COUNT 2.81 mill/uL (4.2-5.4); RED CELL DISTRIBUTION WIDTH 15.8 % (11.6-14.6)
[2019-10-19] MEDS: AMLODIPINE 5MG TABLET PO SCH ×2 (08:14→21:00)
[2019-10-19] MEDS: CLONIDINE 0.1MG TABLET PO SCH ×2 (08:14→21:00)
[2019-10-19] MEDS: LEVETIRACETAM 500MG/5ML CUP PO SCH ×2 (08:14→21:30)
[2019-10-19] MEDS: CLOPIDOGREL 75MG TABLET PO SCH (08:14)
[2019-10-19] MEDS: ALLOPURINOL 100 MG TABLET PO SCH (08:14)
[2019-10-19 08:25] VITALS: BP 145/61
[2019-10-19] MEDS: BUDESONIDE 0.5MG/2ML NEB HHN SCH ×2 (10:31→22:30)
[2019-10-19] MEDS: FUROSEMIDE 20MG TABLET PO SCH (11:05)
[2019-10-19] MEDS: GUAIFENESIN 200MG/10ML SUGAR FREE UDC PO PRN ×2 (11:05→21:30)
[2019-10-19] MEDS: INSULIN GLARGINE UD 100 UNITS/ML SYR SUBCUT SCH ×2 (11:07→21:51)
[2019-10-19] MEDS: FOLIC ACID/VITAMIN B COMP W-C TABLET PO SCH (13:04)
[2019-10-19 20:00] VITALS: BP 108/42
[2019-10-19] MEDS: FAMOTIDINE 20MG TABLET PO SCH (21:30)
[2019-10-19] MEDS: ATORVASTATIN CALCIUM 40MG TABLET PO SCH (21:30)
[2019-10-20] MEDS: IPRATROPIUM BROMIDE (0.02%) 0.5MG/2.5ML NEB HHN SCH ×3 (02:12→07:56)
[2019-10-20] MEDS: BLOOD SUGAR DIAGNOSTIC STRIP TEST SCH ×4 (05:59→21:00)
[2019-10-20] MEDS: LEVOTHYROXINE SODIUM 50MCG TABLET PO SCH (06:00)
[2019-10-20 07:18] LABS: BASOPHILS % 0.2 % (0.0-2.0); EOSINOPHILS % 1.5 % (0.0-5.0); HEMATOCRIT. 27.4 % (36.0-48.0); HEMOGLOBIN. 8.9 g/dL (12.0-16.0); LYMPHOCYTES % 24.5 % (20.0-50.0); MEAN CORPUSCULAR HEMOGLOBIN 28.9 pg (28.0-32.0); MEAN CORPUSCULAR VOLUME 88.6 fL (81.0-99.0); MEAN PLATELET VOLUME 11.3 fl (7.4-10.4); MONOCYTES % 7.5 % (2.0-8.0); NEUTROPHILS % 66.3 % (40.0-76.0); PLATELET 98 x1000/uL (130-400); RED BLOOD CELL COUNT 3.09 mill/uL (4.2-5.4); RED CELL DISTRIBUTION WIDTH 15.8 % (11.6-14.6)
[2019-10-20] MEDS: BUDESONIDE 0.5MG/2ML NEB HHN SCH ×2 (07:54→19:45)
[2019-10-20 08:00] VITALS: BP 145/49
[2019-10-20] MEDS: INSULIN LISPRO 100 UNITS/ML SUBCUT SCH ×4 (09:00→21:00)
[2019-10-20] MEDS: FUROSEMIDE 20MG TABLET PO SCH (09:21)
[2019-10-20] MEDS: FOLIC ACID/VITAMIN B COMP W-C TABLET PO SCH (09:21)
[2019-10-20] MEDS: CLOPIDOGREL 75MG TABLET PO SCH (09:21)
[2019-10-20] MEDS: LEVETIRACETAM 500MG/5ML CUP PO SCH ×2 (09:21→22:28)
[2019-10-20] MEDS: AMLODIPINE 5MG TABLET PO SCH ×2 (09:22→22:27)
[2019-10-20] MEDS: ALLOPURINOL 100 MG TABLET PO SCH (09:22)
[2019-10-20] MEDS: CLONIDINE 0.1MG TABLET PO SCH ×2 (09:22→22:27)
[2019-10-20] MEDS: PREDNISONE 20MG TABLET PO SCH (09:22)
[2019-10-20] MEDS: INSULIN GLARGINE UD 100 UNITS/ML SYR SUBCUT SCH ×2 (09:29→22:54)
[2019-10-20] MEDS: LEVOFLOXACIN 250MG TABLET PO SCH (11:21)
[2019-10-20] MEDS: IPRATROPIUM/ALBUTEROL 0.5-3(2.5)MG/3ML NEB HHN SCH ×4 (12:05→23:56)
[2019-10-20] MEDS: GUAIFENESIN 200MG/10ML SUGAR FREE UDC PO PRN (18:30)
[2019-10-20 20:00] VITALS: BP 144/57
[2019-10-20] MEDS: FAMOTIDINE 20MG TABLET PO SCH (22:26)
[2019-10-20] MEDS: ATORVASTATIN CALCIUM 40MG TABLET PO SCH (22:27)
[2019-10-21] MEDS: IPRATROPIUM/ALBUTEROL 0.5-3(2.5)MG/3ML NEB HHN SCH ×5 (04:00→20:10)
[2019-10-21] MEDS: BLOOD SUGAR DIAGNOSTIC STRIP TEST SCH ×4 (06:36→21:40)
[2019-10-21] MEDS: LEVOTHYROXINE SODIUM 50MCG TABLET PO SCH (06:36)
[2019-10-21] MEDS: INSULIN LISPRO 100 UNITS/ML SUBCUT SCH ×4 (06:39→21:55)
[2019-10-21 07:31] LABS: BASOPHILS % 0.1 % (0.0-2.0); HEMATOCRIT. 24.6 % (36.0-48.0); HEMOGLOBIN. 8.1 g/dL (12.0-16.0); LYMPHOCYTES % 9.6 % (20.0-50.0); MEAN CORPUSCULAR HEMOGLOBIN 28.9 pg (28.0-32.0); MEAN CORPUSCULAR VOLUME 87.6 fL (81.0-99.0); MEAN PLATELET VOLUME 10.8 fl (7.4-10.4); MONOCYTES % 3.7 % (2.0-8.0); NEUTROPHILS % 86.6 % (40.0-76.0); PLATELET 95 x1000/uL (130-400); RED BLOOD CELL COUNT 2.81 mill/uL (4.2-5.4); RED CELL DISTRIBUTION WIDTH 15.8 % (11.6-14.6)
[2019-10-21] MEDS: BUDESONIDE 0.5MG/2ML NEB HHN SCH (08:21)
[2019-10-21 08:54] VITALS: BP 157/52
[2019-10-21] MEDS: CLONIDINE 0.1MG TABLET PO SCH ×2 (09:58→21:00)
[2019-10-21] MEDS: CLOPIDOGREL 75MG TABLET PO SCH (09:58)
[2019-10-21] MEDS: LEVETIRACETAM 500MG/5ML CUP PO SCH ×2 (09:58→21:40)
[2019-10-21] MEDS: PREDNISONE 20MG TABLET PO SCH (09:58)
[2019-10-21] MEDS: AMLODIPINE 5MG TABLET PO SCH ×2 (09:59→21:00)
[2019-10-21] MEDS: FUROSEMIDE 20MG TABLET PO SCH (09:59)
[2019-10-21] MEDS: FOLIC ACID/VITAMIN B COMP W-C TABLET PO SCH (09:59)
[2019-10-21] MEDS: ALLOPURINOL 100 MG TABLET PO SCH (09:59)
[2019-10-21] MEDS: INSULIN GLARGINE UD 100 UNITS/ML SYR SUBCUT SCH ×2 (13:26→21:56)
[2019-10-21 20:00] VITALS: BP 108/72
[2019-10-21] MEDS: ATORVASTATIN CALCIUM 40MG TABLET PO SCH (21:40)
[2019-10-21] MEDS: FAMOTIDINE 20MG TABLET PO SCH (21:40)
[2019-10-22] MEDS: IPRATROPIUM/ALBUTEROL 0.5-3(2.5)MG/3ML NEB HHN SCH ×7 (00:28→23:53)
[2019-10-22] MEDS: BLOOD SUGAR DIAGNOSTIC STRIP TEST SCH ×4 (05:49→20:16)
[2019-10-22] MEDS: LEVOTHYROXINE SODIUM 50MCG TABLET PO SCH (06:06)
[2019-10-22] MEDS: INSULIN LISPRO 100 UNITS/ML SUBCUT SCH ×4 (06:07→20:28)
[2019-10-22 08:00] VITALS: BP 171/77
[2019-10-22] MEDS: ALLOPURINOL 100 MG TABLET PO SCH (09:27)
[2019-10-22] MEDS: PREDNISONE 20MG TABLET PO SCH (09:27)
[2019-10-22] MEDS: LEVETIRACETAM 500MG/5ML CUP PO SCH ×2 (09:27→20:15)
[2019-10-22] MEDS: CLOPIDOGREL 75MG TABLET PO SCH (09:27)
[2019-10-22] MEDS: FUROSEMIDE 20MG TABLET PO SCH (09:27)
[2019-10-22] MEDS: CLONIDINE 0.1MG TABLET PO SCH ×2 (09:28→20:16)
[2019-10-22] MEDS: FOLIC ACID/VITAMIN B COMP W-C TABLET PO SCH (09:28)
[2019-10-22] MEDS: AMLODIPINE 5MG TABLET PO SCH ×2 (09:28→20:16)
[2019-10-22 09:33] LABS: BASOPHILS % 0.1 % (0.0-2.0); HEMATOCRIT. 24.9 % (36.0-48.0); HEMOGLOBIN. 8.1 g/dL (12.0-16.0); LYMPHOCYTES % 11.6 % (20.0-50.0); MEAN CORPUSCULAR HEMOGLOBIN 28.4 pg (28.0-32.0); MEAN PLATELET VOLUME 11.2 fl (7.4-10.4); MONOCYTES % 3.7 % (2.0-8.0); NEUTROPHILS % 84.6 % (40.0-76.0); PLATELET 104 x1000/uL (130-400); RED BLOOD CELL COUNT 2.86 mill/uL (4.2-5.4); RED CELL DISTRIBUTION WIDTH 15.6 % (11.6-14.6)
[2019-10-22] MEDS: GUAIFENESIN 200MG/10ML SUGAR FREE UDC PO PRN (09:33)
[2019-10-22] MEDS ORDERED: GUAIFENESIN-DM 200MG-20MG/10ML UDC PO PRN (10:00)
[2019-10-22] MEDS: INSULIN GLARGINE UD 100 UNITS/ML SYR SUBCUT SCH ×2 (10:17→21:38)
[2019-10-22] MEDS: BENZONATATE 100MG CAPSULE PO SCH ×2 (10:19→17:30)
[2019-10-22] MEDS: LEVOFLOXACIN 250MG TABLET PO SCH (10:19)
[2019-10-22 20:00] VITALS: BP 144/53
[2019-10-22] MEDS: ACETAMINOPHEN 650MG/20.3ML UDC PO PRN (20:16)
[2019-10-22] MEDS: ATORVASTATIN CALCIUM 40MG TABLET PO SCH (20:16)
[2019-10-22] MEDS: FAMOTIDINE 20MG TABLET PO SCH (20:16)
[2019-10-23] MEDS: BENZONATATE 100MG CAPSULE PO SCH ×4 (01:19→22:01)
[2019-10-23] MEDS: IPRATROPIUM/ALBUTEROL 0.5-3(2.5)MG/3ML NEB HHN SCH ×5 (03:43→21:11)
[2019-10-23] MEDS: LEVOTHYROXINE SODIUM 50MCG TABLET PO SCH (05:56)
[2019-10-23] MEDS: BLOOD SUGAR DIAGNOSTIC STRIP TEST SCH ×4 (05:56→21:00)
[2019-10-23] MEDS: INSULIN LISPRO 100 UNITS/ML SUBCUT SCH ×4 (06:03→22:08)
[2019-10-23 06:58] LABS: HEMOGLOBIN. 7.8 g/dL (12.0-16.0); LYMPHOCYTES % 10.4 % (20.0-50.0); MEAN CORPUSCULAR HEMOGLOBIN 28.6 pg (28.0-32.0); MEAN CORPUSCULAR VOLUME 87.5 fL (81.0-99.0); MEAN PLATELET VOLUME 11.6 fl (7.4-10.4); MONOCYTES % 3.6 % (2.0-8.0); PLATELET 111 x1000/uL (130-400); RED BLOOD CELL COUNT 2.74 mill/uL (4.2-5.4); RED CELL DISTRIBUTION WIDTH 15.7 % (11.6-14.6)
[2019-10-23 08:18] VITALS: BP 130/48
[2019-10-23] MEDS: CLONIDINE 0.1MG TABLET PO SCH ×2 (10:13→21:00)
[2019-10-23] MEDS: CLOPIDOGREL 75MG TABLET PO SCH (10:13)
[2019-10-23] MEDS: FOLIC ACID/VITAMIN B COMP W-C TABLET PO SCH (10:13)
[2019-10-23] MEDS: ALLOPURINOL 100 MG TABLET PO SCH (10:13)
[2019-10-23] MEDS: PREDNISONE 20MG TABLET PO SCH (10:13)
[2019-10-23] MEDS: AMLODIPINE 5MG TABLET PO SCH ×2 (10:13→22:01)
[2019-10-23] MEDS: FUROSEMIDE 20MG TABLET PO SCH (10:14)
[2019-10-23] MEDS: LEVETIRACETAM 500MG/5ML CUP PO SCH ×2 (10:19→22:01)
[2019-10-23] MEDS: INSULIN GLARGINE UD 100 UNITS/ML SYR SUBCUT SCH ×2 (10:30→22:06)
[2019-10-23 20:00] VITALS: BP 138/51
[2019-10-23] MEDS: FAMOTIDINE 20MG TABLET PO SCH (21:00)
[2019-10-23] MEDS: ATORVASTATIN CALCIUM 40MG TABLET PO SCH (22:01)
[2019-10-24] MEDS: IPRATROPIUM/ALBUTEROL 0.5-3(2.5)MG/3ML NEB HHN SCH ×6 (00:14→21:10)
[2019-10-24] MEDS: BLOOD SUGAR DIAGNOSTIC STRIP TEST SCH ×4 (06:22→21:00)
[2019-10-24] MEDS: LEVOTHYROXINE SODIUM 50MCG TABLET PO SCH (06:23)
[2019-10-24 08:20] LABS: HEMATOCRIT. 24.1 % (36.0-48.0); HEMOGLOBIN. 7.8 g/dL (12.0-16.0); LYMPHOCYTES % 9.9 % (20.0-50.0); MEAN CORPUSCULAR HEMOGLOBIN 28.4 pg (28.0-32.0); MEAN CORPUSCULAR VOLUME 87.7 fL (81.0-99.0); MEAN PLATELET VOLUME 11.5 fl (7.4-10.4); MONOCYTES % 4.9 % (2.0-8.0); NEUTROPHILS % 85.2 % (40.0-76.0); PLATELET 103 x1000/uL (130-400); RED BLOOD CELL COUNT 2.75 mill/uL (4.2-5.4); RED CELL DISTRIBUTION WIDTH 16.1 % (11.6-14.6)
[2019-10-24 08:30] VITALS: BP 136/49
[2019-10-24] MEDS: CLONIDINE 0.1MG TABLET PO SCH ×2 (08:58→21:00)
[2019-10-24] MEDS: INSULIN LISPRO 100 UNITS/ML SUBCUT SCH ×4 (09:00→22:08)
[2019-10-24] MEDS: LEVETIRACETAM 500MG/5ML CUP PO SCH ×2 (09:01→22:00)
[2019-10-24] MEDS: ACETAMINOPHEN 650MG/20.3ML UDC PO PRN (09:01)
[2019-10-24] MEDS: FOLIC ACID/VITAMIN B COMP W-C TABLET PO SCH (09:02)
[2019-10-24] MEDS: AMLODIPINE 5MG TABLET PO SCH ×2 (09:02→21:00)
[2019-10-24] MEDS: CLOPIDOGREL 75MG TABLET PO SCH (09:03)
[2019-10-24] MEDS: PREDNISONE 20MG TABLET PO SCH (09:03)
[2019-10-24] MEDS: FUROSEMIDE 20MG TABLET PO SCH (09:03)
[2019-10-24] MEDS: ALLOPURINOL 100 MG TABLET PO SCH (09:03)
[2019-10-24] MEDS: BENZONATATE 100MG CAPSULE PO SCH ×3 (11:24→22:00)
[2019-10-24] MEDS: INSULIN GLARGINE UD 100 UNITS/ML SYR SUBCUT SCH ×2 (11:27→22:07)
[2019-10-24] MEDS ORDERED: LACTULOSE 20G/30ML UDC PO PRN (14:00)
[2019-10-24] MEDS ORDERED: NA PHOS,M-B/NA PHOS,DI-BA ENEMA 118ML PR SCH (14:00)
[2019-10-24 20:00] VITALS: BP 109/64
[2019-10-24] MEDS ORDERED: EPOETIN ALFA 10000UNITS/ML VIAL SUBCUT SCH (21:00)
[2019-10-24] MEDS: ATORVASTATIN CALCIUM 40MG TABLET PO SCH (22:00)
[2019-10-24] MEDS: FAMOTIDINE 20MG TABLET PO SCH (22:00)
[2019-10-25] MEDS: IPRATROPIUM/ALBUTEROL 0.5-3(2.5)MG/3ML NEB HHN SCH ×6 (00:02→21:01)
[2019-10-25] MEDS: BLOOD SUGAR DIAGNOSTIC STRIP TEST SCH ×4 (06:13→21:00)
[2019-10-25] MEDS: INSULIN LISPRO 100 UNITS/ML SUBCUT SCH ×4 (06:14→23:13)
[2019-10-25] MEDS: LEVOTHYROXINE SODIUM 50MCG TABLET PO SCH (06:14)
[2019-10-25 08:00] VITALS: BP 170/54
[2019-10-25] MEDS: FOLIC ACID/VITAMIN B COMP W-C TABLET PO SCH (09:17)
[2019-10-25] MEDS: PREDNISONE 20MG TABLET PO SCH (09:18)
[2019-10-25] MEDS: CLOPIDOGREL 75MG TABLET PO SCH (09:18)
[2019-10-25] MEDS: BENZONATATE 100MG CAPSULE PO SCH ×3 (09:18→22:56)
[2019-10-25] MEDS: FUROSEMIDE 20MG TABLET PO SCH (09:18)
[2019-10-25] MEDS: ALLOPURINOL 100 MG TABLET PO SCH (09:18)
[2019-10-25] MEDS: ACETAMINOPHEN 650MG/20.3ML UDC PO PRN (09:19)
[2019-10-25] MEDS: LEVETIRACETAM 500MG/5ML CUP PO SCH ×2 (09:19→22:55)
[2019-10-25] MEDS: AMLODIPINE 5MG TABLET PO SCH ×2 (09:25→22:56)
[2019-10-25] MEDS: CLONIDINE 0.1MG TABLET PO SCH ×2 (09:25→21:00)
[2019-10-25] MEDS: INSULIN GLARGINE UD 100 UNITS/ML SYR SUBCUT SCH ×2 (09:35→23:14)
[2019-10-25 13:09] LABS: BASOPHILS % 0.1 % (0.0-2.0); EOSINOPHILS % 0.1 % (0.0-5.0); HEMATOCRIT. 27.7 % (36.0-48.0); HEMOGLOBIN. 8.9 g/dL (12.0-16.0); MEAN CORPUSCULAR HEMOGLOBIN 28.6 pg (28.0-32.0); MEAN CORPUSCULAR VOLUME 89.4 fL (81.0-99.0); NEUTROPHILS % 83.8 % (40.0-76.0); PLATELET 118 x1000/uL (130-400); RED BLOOD CELL COUNT 3.09 mill/uL (4.2-5.4); RED CELL DISTRIBUTION WIDTH 15.9 % (11.6-14.6)
[2019-10-25 20:00] VITALS: BP 130/68
[2019-10-25] MEDS: ATORVASTATIN CALCIUM 40MG TABLET PO SCH (22:56)
[2019-10-25] MEDS: FAMOTIDINE 20MG TABLET PO SCH (22:56)
[2019-10-26] MEDS: IPRATROPIUM/ALBUTEROL 0.5-3(2.5)MG/3ML NEB HHN SCH ×3 (01:02→10:25)
[2019-10-26] MEDS: BLOOD SUGAR DIAGNOSTIC STRIP TEST SCH ×2 (06:12→11:15)
[2019-10-26] MEDS: LEVOTHYROXINE SODIUM 50MCG TABLET PO SCH (06:24)
[2019-10-26 07:06] LABS: EOSINOPHILS % 0.1 % (0.0-5.0); HEMATOCRIT. 25.1 % (36.0-48.0); HEMOGLOBIN. 8.1 g/dL (12.0-16.0); LYMPHOCYTES % 19.1 % (20.0-50.0); MEAN CORPUSCULAR HEMOGLOBIN 28.3 pg (28.0-32.0); MEAN CORPUSCULAR VOLUME 87.6 fL (81.0-99.0); MEAN PLATELET VOLUME 10.1 fl (7.4-10.4); MONOCYTES % 6.3 % (2.0-8.0); NEUTROPHILS % 74.5 % (40.0-76.0); PLATELET 100 x1000/uL (130-400); RED BLOOD CELL COUNT 2.86 mill/uL (4.2-5.4); RED CELL DISTRIBUTION WIDTH 16.2 % (11.6-14.6)
[2019-10-26 08:00] VITALS: BP 143/46
[2019-10-26] MEDS ORDERED: PREDNISONE 10MG TABLET PO SCH (09:00)
[2019-10-26] MEDS: INSULIN LISPRO 100 UNITS/ML SUBCUT SCH ×2 (09:00→13:08)
[2019-10-26] MEDS: LEVETIRACETAM 500MG/5ML CUP PO SCH (10:48)
[2019-10-26] MEDS: CLONIDINE 0.1MG TABLET PO SCH (10:48)
[2019-10-26] MEDS: BENZONATATE 100MG CAPSULE PO SCH (10:49)
[2019-10-26] MEDS: FOLIC ACID/VITAMIN B COMP W-C TABLET PO SCH (10:49)
[2019-10-26] MEDS: ALLOPURINOL 100 MG TABLET PO SCH (10:49)
[2019-10-26] MEDS: CLOPIDOGREL 75MG TABLET PO SCH (10:49)
[2019-10-26] MEDS: FUROSEMIDE 20MG TABLET PO SCH (10:50)
[2019-10-26] MEDS: AMLODIPINE 5MG TABLET PO SCH (10:51)
[2019-10-26] MEDS: INSULIN GLARGINE UD 100 UNITS/ML SYR SUBCUT SCH (11:03)
[2019-10-26 13:32] VITALS: BP 143/46
== END 2019-10-26 18:00 | disposition home health service (06) | DRG 70 ==
PROVIDERS: ADMIT Psychiatry & Neurology Neurology; ATTEND Internal Medicine
DX: G93.41 Metabolic encephalopathy (principal); I63.512 Cerebral infarction due to unspecified occlusion or stenosis of left middle cerebral artery; E46 Unspecified protein-calorie malnutrition; E87.2 Acidosis; N17.9 Acute kidney failure, unspecified; B19.20 Unspecified viral hepatitis C without hepatic coma; D64.9 Anemia, unspecified; D69.6 Thrombocytopenia, unspecified; E03.9 Hypothyroidism, unspecified; E11.22 Type 2 diabetes mellitus with diabetic chronic kidney disease; E11.51 Type 2 diabetes mellitus with diabetic peripheral angiopathy without gangrene; E66.9 Obesity, unspecified; Z68.31 Body mass index [BMI] 31.0-31.9, adult; E78.5 Hyperlipidemia, unspecified; E87.5 Hyperkalemia; E87.8 Other disorders of electrolyte and fluid balance, not elsewhere classified; F01.50 Vascular dementia, unspecified severity, without behavioral disturbance, psychotic disturbance, mood disturbance, and anxiety; F39 Unspecified mood [affective] disorder; G24.9 Dystonia, unspecified; G25.2 Other specified forms of tremor; G40.909 Epilepsy, unspecified, not intractable, without status epilepticus; I08.1 Rheumatic disorders of both mitral and tricuspid valves; I27.20 Pulmonary hypertension, unspecified; I12.9 Hypertensive chronic kidney disease with stage 1 through stage 4 chronic kidney disease, or unspecified chronic kidney disease; I69.320 Aphasia following cerebral infarction; J44.9 Chronic obstructive pulmonary disease, unspecified; N18.9 Chronic kidney disease, unspecified; R32 Unspecified urinary incontinence
CPT/HCPCS: 36415; 36600; 70551; 71045; 80048; 80053; 81003; 82140; 82375; 82575; 82728; 82805; 82962; 83036; 83540; 83550; 83735; 84100; 84443; 85025; 85027; 92523; 94640; 97110; 97116; 97163; 97166; 97530; 97535; J0885; J1650; J1815; J1940; J1956; J3490; J7512; J7626

== ENCOUNTER 2020-02-25 14:54 | Inpatient (IN) | payer MEDICARE, MEDICAID ==
[~2020-02-25] VITALS: Ht 170.2 cm; Wt 98.0 kg
[2020-02-25] MEDS ORDERED: FAMOTIDINE 20MG/2ML VIAL IV STA (15:21)
[2020-02-25 15:56] LABS: BASOPHILS % 0.7 % (0.0-2.0); EOSINOPHILS % 0.6 % (0.0-5.0); HEMATOCRIT. 23.9 % (36.0-48.0); HEMOGLOBIN. 7.7 g/dL (12.0-16.0); LYMPHOCYTES % 25.5 % (20.0-50.0); MEAN CORPUSCULAR HEMOGLOBIN 32.5 pg (28.0-32.0); MEAN CORPUSCULAR VOLUME 100.5 fL (81.0-99.0); MEAN PLATELET VOLUME 10.5 fl (7.4-10.4); MONOCYTES % 4.8 % (2.0-8.0); NEUTROPHILS % 68.4 % (40.0-76.0); PLATELET 178 x1000/uL (130-400); RED BLOOD CELL COUNT 2.38 mill/uL (4.2-5.4); RED CELL DISTRIBUTION WIDTH 14.7 % (11.6-14.6)
[2020-02-25 16:03] LABS: CHLORIDE 114 mEq/L (98-107)
[2020-02-25 16:06] LABS: PROTHROMBIN TIME 10.8 sec (9.6-11.0)
[2020-02-25] MEDS ORDERED: SODIUM BICARBONATE 8.4% 1 MEQ/ML 50ML SYR IV ONE (16:30)
[2020-02-25] MEDS ORDERED: INSULIN REGULAR (HUMULIN R) 300UNITS/3ML IV ONE (16:30)
[2020-02-25] MEDS ORDERED: CALCIUM CHLORIDE 1GM/10ML SYR IV ONE (16:30)
[2020-02-25] MEDS ORDERED: DEXTROSE 50% WATER 50ML SYRINGE IV ONE (16:30)
[2020-02-25] MEDS ORDERED: TRAMADOL 50MG TABLET PO ONE (16:30)
[2020-02-25 17:09] LABS: BG BASE EXCESS -10.7 mmol/L (-2.0-2.0); BG CARBOXYHEMOGLOBIN 0.2 % (0.5-1.5); BG DEOXYHEMOGLOBIN 2.9 % (0.0-5.0); BG FRACTION INSPIRED OXYGEN 21; BG METHEMOGLOBIN 0.4 % (0.0-1.5); BG OXYGEN SATURATION 97.1 % (92.0-98.5); BG OXYHEMOGLOBIN 96.5 % (94.0-97.0); BG PCO2 32.1 mmHg (35.0-45.0); BG PH 7.287 (7.350-7.450); BG PO2 109.4 mmHg (75.0-100.0); BG SAMPLE SITE RIGHT RADIAL; BG TOTAL HEMOGLOBIN 6.9 g/dL (12.0-18.0); BG VENT MODE ROOM AIR
[2020-02-25 17:43] LABS: CLARITY URINE CLOUDY (CLEAR); COLOR URINE YELLOW (YELLOW); KETONES URINE NEGATIVE (NEGATIVE); LEUKOCYTE ESTERASE URINE NEGATIVE (NEGATIVE); NITRITE URINE NEGATIVE (NEGATIVE); OCCULT BLOOD URINE NEGATIVE (NEGATIVE); PH URINE 5.5 (4.5-8.0); PROTEIN URINE 3+ (NEGATIVE); SPECIFIC GRAVITY URINE 1.013 (1.005-1.030); UROBILINOGEN URINE 0.2 E.U./dL (0.2-1.0)
[2020-02-25 20:48] VITALS: BP 89/47
[2020-02-25] MEDS ORDERED: ZOLPIDEM TARTRATE 5MG TABLET PO PRN (21:45)
[2020-02-25] MEDS ORDERED: IPRATROPIUM/ALBUTEROL 0.5-3(2.5)MG/3ML NEB HHN PRN (21:45)
[2020-02-25] MEDS ORDERED: GUAIFENESIN 200MG/10ML SUGAR FREE UDC PO PRN (21:45)
[2020-02-25] MEDS ORDERED: ACETAMINOPHEN 325MG TABLET PO PRN (21:45)
[2020-02-25] MEDS ORDERED: ENOXAPARIN 40MG/0.4ML SYR SUBCUT SCH (21:45)
[2020-02-25] MEDS ORDERED: DEXTROSE 50% WATER 50ML SYRINGE IV PRN (21:45)
[2020-02-25] MEDS ORDERED: ONDANSETRON HCL 4MG/2ML INJ IV PRN (21:45)
[2020-02-25] MEDS: INSULIN GLARGINE UD 100 UNITS/ML SYR SUBCUT SCH (23:00)
[2020-02-26] VITALS: BP 136/58
[2020-02-26] MEDS: ACETAMINOPHEN 325MG TABLET PO PRN ×2 (00:38→20:40)
[2020-02-26] MEDS: DEXT 5%/0.45% NACL 1000ML 1,000 ML IV SCH ×3 (00:39→20:15)
[2020-02-26] MEDS: CLONAZEPAM 0.5MG TABLET PO SCH ×4 (00:39→21:47)
[2020-02-26 04:00] VITALS: BP 109/57
[2020-02-26] MEDS ORDERED: LEVE1000 PO (05:11)
[2020-02-26] MEDS ORDERED: ASPI-1497 PO (05:14)
[2020-02-26 06:11] LABS: PHOSPHORUS 5.1 mg/dL (2.5-4.9)
[2020-02-26 08:00] VITALS: BP 127/58
[2020-02-26] MEDS: INSULIN LISPRO 100 UNITS/ML SUBCUT SCH ×4 (08:00→20:51)
[2020-02-26] MEDS: IPRATROPIUM/ALBUTEROL 0.5-3(2.5)MG/3ML NEB HHN SCH ×2 (08:10→08:50)
[2020-02-26] MEDS: LEVETIRACETAM 500MG/5ML CUP PO SCH ×2 (08:28→20:39)
[2020-02-26] MEDS: LEVOTHYROXINE SODIUM 75MCG TABLET PO SCH (08:28)
[2020-02-26] MEDS: BLOOD SUGAR DIAGNOSTIC STRIP TEST SCH ×4 (08:28→20:51)
[2020-02-26] MEDS: ENOXAPARIN 30MG/0.3ML SYR SUBCUT SCH (08:49)
[2020-02-26] MEDS: ALLOPURINOL 100 MG TABLET PO SCH (08:49)
[2020-02-26] MEDS ORDERED: CITRIC ACID/SODIUM CITRATE SOLN 15ML UDC PO SCH (09:00)
[2020-02-26] MEDS ORDERED: SODIUM POLYSTYRENE SULFONATE 15 G/60 ML BOT PO SCH (11:00)
[2020-02-26 11:55] LABS: CREATINE KINASE 46 IU/L (26-192)
[2020-02-26 12:00] VITALS: BP 154/41
[2020-02-26] MEDS: CITRIC ACID/SODIUM CITRATE SOLN 30ML UDC PO SCH ×3 (12:32→17:25)
[2020-02-26] MEDS: INSULIN GLARGINE UD 100 UNITS/ML SYR SUBCUT SCH ×2 (12:36→21:46)
[2020-02-26 16:00] VITALS: BP 159/51
[2020-02-26 17:21] LABS: BASOPHILS % 0.7 % (0.0-2.0); EOSINOPHILS % 1.9 % (0.0-5.0); LYMPHOCYTES % 26.2 % (20.0-50.0); MEAN CORPUSCULAR HEMOGLOBIN 31.9 pg (28.0-32.0); MEAN CORPUSCULAR VOLUME 97.7 fL (81.0-99.0); MEAN PLATELET VOLUME 9.6 fl (7.4-10.4); MONOCYTES % 5.9 % (2.0-8.0); NEUTROPHILS % 65.3 % (40.0-76.0); PLATELET 121 x1000/uL (130-400); RED BLOOD CELL COUNT 1.91 mill/uL (4.2-5.4); RED CELL DISTRIBUTION WIDTH 14.6 % (11.6-14.6)
[2020-02-26 17:28] LABS: HEMATOCRIT. 18.7 % (36.0-48.0); HEMOGLOBIN. 6.1 g/dL (12.0-16.0)
[2020-02-26 20:00] VITALS: BP 179/47
[2020-02-26] MEDS: ATORVASTATIN CALCIUM 40MG TABLET PO SCH (20:39)
[2020-02-26] MEDS: CLONIDINE 0.1MG TABLET PO PRN (20:45)
[2020-02-27] VITALS (15 sets, daily range): BP systolic 97–172; BP diastolic 41–62
[2020-02-27] MEDS: LEVOTHYROXINE SODIUM 75MCG TABLET PO SCH (05:53)
[2020-02-27] MEDS: CLONAZEPAM 0.5MG TABLET PO SCH ×3 (05:53→21:26)
[2020-02-27] MEDS: INSULIN LISPRO 100 UNITS/ML SUBCUT SCH ×4 (06:01→21:00)
[2020-02-27] MEDS: BLOOD SUGAR DIAGNOSTIC STRIP TEST SCH ×4 (06:01→21:00)
[2020-02-27 06:27] LABS: HEMOGLOBIN 5.2 g/dL (12.0-16.0)
[2020-02-27] MEDS: ENOXAPARIN 30MG/0.3ML SYR SUBCUT SCH (09:00)
[2020-02-27] MEDS: CITRIC ACID/SODIUM CITRATE SOLN 30ML UDC PO SCH ×3 (09:12→16:10)
[2020-02-27] MEDS: LEVETIRACETAM 500MG/5ML CUP PO SCH ×2 (09:12→21:26)
[2020-02-27] MEDS: ALLOPURINOL 100 MG TABLET PO SCH (09:13)
[2020-02-27] MEDS: CLONIDINE 0.1MG TABLET PO PRN (09:14)
[2020-02-27] MEDS: INSULIN GLARGINE UD 100 UNITS/ML SYR SUBCUT SCH ×2 (11:54→21:32)
[2020-02-27] MEDS ORDERED: ACETAMINOPHEN 325MG TABLET PO SCH (12:30)
[2020-02-27] MEDS ORDERED: DIPHENHYDRAMINE 50MG/ML VIAL IV SCH (12:30)
[2020-02-27] MEDS ORDERED: METHYLPREDNISOLONE SOD SUCC 40 MG/ML VIAL IV SCH (12:30)
[2020-02-27] MEDS: DEXT 5%/0.45% NACL 1000ML 1,000 ML IV SCH ×2 (14:12→21:35)
[2020-02-27] MEDS: IPRATROPIUM/ALBUTEROL 0.5-3(2.5)MG/3ML NEB HHN SCH (15:44)
[2020-02-27] MEDS: ATORVASTATIN CALCIUM 40MG TABLET PO SCH (21:26)
[2020-02-27 21:49] LABS: MEAN CORPUSCULAR VOLUME 95.6 fL (81.0-99.0); MEAN PLATELET VOLUME 9.8 fl (7.4-10.4); PLATELET 67 x1000/uL (130-400); RED BLOOD CELL COUNT 1.38 mill/uL (4.2-5.4); RED CELL DISTRIBUTION WIDTH 15.4 % (11.6-14.6)
[2020-02-27 21:52] LABS: HEMATOCRIT. 13.2 % (36.0-48.0); HEMOGLOBIN. 4.4 g/dL (12.0-16.0)
[2020-02-27 22:52] LABS: PLATELET ESTIMATE DECREASED
[2020-02-27 23:48] LABS: HEMATOCRIT 16.8 % (36.0-48.0); HEMOGLOBIN 5.6 g/dL (12.0-16.0)
[2020-02-28] VITALS (15 sets, daily range): BP systolic 97–141; BP diastolic 36–90
[2020-02-28] MEDS: ACETAMINOPHEN 325MG TABLET PO PRN ×2 (00:31→20:59)
[2020-02-28] MEDS: DIPHENHYDRAMINE 50MG/ML VIAL IV PRN ×2 (00:31→20:59)
[2020-02-28] MEDS: IPRATROPIUM/ALBUTEROL 0.5-3(2.5)MG/3ML NEB HHN SCH ×4 (01:48→16:04)
[2020-02-28] MEDS: INSULIN LISPRO 100 UNITS/ML SUBCUT SCH ×4 (05:50→21:00)
[2020-02-28] MEDS: BLOOD SUGAR DIAGNOSTIC STRIP TEST SCH ×4 (05:50→21:00)
[2020-02-28] MEDS: CLONAZEPAM 0.5MG TABLET PO SCH ×3 (06:01→22:16)
[2020-02-28] MEDS: LEVOTHYROXINE SODIUM 75MCG TABLET PO SCH (06:01)
[2020-02-28 07:19] LABS: BASOPHILS % 0.2 % (0.0-2.0); LYMPHOCYTES % 15.9 % (20.0-50.0); MEAN PLATELET VOLUME 10.1 fl (7.4-10.4); MONOCYTES % 5.2 % (2.0-8.0); NEUTROPHILS % 78.7 % (40.0-76.0); PLATELET 81 x1000/uL (130-400); RED BLOOD CELL COUNT 2.12 mill/uL (4.2-5.4); RED CELL DISTRIBUTION WIDTH 14.8 % (11.6-14.6)
[2020-02-28 08:01] LABS: HEMATOCRIT. 19.9 % (36.0-48.0); HEMOGLOBIN. 6.8 g/dL (12.0-16.0)
[2020-02-28] MEDS ORDERED: SODIUM POLYSTYRENE SULFONATE 15 G/60 ML BOT PO NR (09:30)
[2020-02-28] MEDS: CITRIC ACID/SODIUM CITRATE SOLN 30ML UDC PO SCH ×3 (09:41→17:20)
[2020-02-28] MEDS: LEVETIRACETAM 500MG/5ML CUP PO SCH ×2 (09:41→22:16)
[2020-02-28] MEDS: ALLOPURINOL 100 MG TABLET PO SCH (09:41)
[2020-02-28] MEDS: INSULIN GLARGINE UD 100 UNITS/ML SYR SUBCUT SCH ×2 (09:43→22:17)
[2020-02-28] MEDS: DEXT 5%/0.45% NACL 1000ML 1,000 ML IV SCH (13:30)
[2020-02-28] MEDS: ATORVASTATIN CALCIUM 40MG TABLET PO SCH (22:16)
[2020-02-29] VITALS (7 sets, daily range): BP systolic 104–126; BP diastolic 37–54
[2020-02-29] MEDS: IPRATROPIUM/ALBUTEROL 0.5-3(2.5)MG/3ML NEB HHN SCH ×4 (00:13→17:10)
[2020-02-29 02:35] LABS: HEMATOCRIT 21.6 % (36.0-48.0); HEMOGLOBIN 7.3 g/dL (12.0-16.0)
[2020-02-29] MEDS: BLOOD SUGAR DIAGNOSTIC STRIP TEST SCH ×4 (05:35→21:29)
[2020-02-29] MEDS: DEXT 5%/0.45% NACL 1000ML 1,000 ML IV SCH (05:37)
[2020-02-29] MEDS: CLONAZEPAM 0.5MG TABLET PO SCH ×3 (05:48→21:29)
[2020-02-29] MEDS: LEVOTHYROXINE SODIUM 75MCG TABLET PO SCH (05:48)
[2020-02-29] MEDS: INSULIN LISPRO 100 UNITS/ML SUBCUT SCH ×4 (07:04→21:00)
[2020-02-29] MEDS: ALLOPURINOL 100 MG TABLET PO SCH (08:31)
[2020-02-29] MEDS: LEVETIRACETAM 500MG/5ML CUP PO SCH ×2 (08:31→21:29)
[2020-02-29] MEDS: CITRIC ACID/SODIUM CITRATE SOLN 30ML UDC PO SCH ×3 (08:32→18:11)
[2020-02-29] MEDS: INSULIN GLARGINE UD 100 UNITS/ML SYR SUBCUT SCH ×2 (09:29→22:00)
[2020-02-29] MEDS: ATORVASTATIN CALCIUM 40MG TABLET PO SCH (21:29)
[2020-02-29] MEDS: EPOETIN ALFA 10000UNITS/ML VIAL SUBCUT SCH (21:29)
[2020-02-29] MEDS: ACETAMINOPHEN 325MG TABLET PO PRN (22:26)
[2020-02-29] MEDS: DIPHENHYDRAMINE 50MG/ML VIAL IV PRN (23:07)
[2020-03-01] VITALS (16 sets, daily range): BP systolic 100–168; BP diastolic 36–70
[2020-03-01] MEDS: ACETAMINOPHEN 325MG TABLET PO PRN (01:09)
[2020-03-01 05:33] LABS: INR 1.1; PROTHROMBIN TIME 11.2 sec (9.6-11.0)
[2020-03-01 05:57] LABS: HEMATOCRIT 19.4 % (36.0-48.0); HEMOGLOBIN 6.6 g/dL (12.0-16.0)
[2020-03-01] MEDS: BLOOD SUGAR DIAGNOSTIC STRIP TEST SCH ×4 (06:32→20:57)
[2020-03-01] MEDS: CLONAZEPAM 0.5MG TABLET PO SCH ×3 (06:32→21:07)
[2020-03-01] MEDS: LEVOTHYROXINE SODIUM 75MCG TABLET PO SCH (06:32)
[2020-03-01] MEDS: INSULIN LISPRO 100 UNITS/ML SUBCUT SCH ×4 (06:32→21:00)
[2020-03-01 07:31] LABS: BASOPHILS % 0.3 % (0.0-2.0); EOSINOPHILS % 3.6 % (0.0-5.0); LYMPHOCYTES % 25.9 % (20.0-50.0); MEAN CORPUSCULAR HEMOGLOBIN 30.9 pg (28.0-32.0); MEAN CORPUSCULAR VOLUME 91.5 fL (81.0-99.0); MEAN PLATELET VOLUME 10.7 fl (7.4-10.4); MONOCYTES % 6.8 % (2.0-8.0); NEUTROPHILS % 63.4 % (40.0-76.0); PLATELET 73 x1000/uL (130-400); RED CELL DISTRIBUTION WIDTH 15.8 % (11.6-14.6)
[2020-03-01 07:56] LABS: HEMATOCRIT. 20.1 % (36.0-48.0); HEMOGLOBIN. 6.8 g/dL (12.0-16.0)
[2020-03-01] MEDS ORDERED: ACETAMINOPHEN 325MG TABLET PO NR (08:45)
[2020-03-01] MEDS ORDERED: METHYLPREDNISOLONE SOD SUCC 40 MG/ML VIAL IV NR ×2 (08:45→17:45)
[2020-03-01] MEDS ORDERED: DIPHENHYDRAMINE 50MG/ML VIAL IV NR (08:45)
[2020-03-01] MEDS: IPRATROPIUM/ALBUTEROL 0.5-3(2.5)MG/3ML NEB HHN SCH ×2 (09:43→16:13)
[2020-03-01] MEDS: ALLOPURINOL 100 MG TABLET PO SCH (10:07)
[2020-03-01] MEDS: CITRIC ACID/SODIUM CITRATE SOLN 30ML UDC PO SCH ×3 (10:07→16:36)
[2020-03-01] MEDS: LEVETIRACETAM 500MG/5ML CUP PO SCH ×2 (10:08→20:27)
[2020-03-01] MEDS: INSULIN GLARGINE UD 100 UNITS/ML SYR SUBCUT SCH ×2 (10:10→21:15)
[2020-03-01] MEDS ORDERED: LIDOCAINE HCL 1% 20ML VIAL (Pyxis) INJ ONE (12:52)
[2020-03-01] MEDS ORDERED: LIDOCAINE HCL/EPINEPHRINE 1%-EPI 1:100,000 20 ML VIAL ONE (12:52)
[2020-03-01] MEDS ORDERED: SODIUM BICARBONATE 4% (2.4MEQ) 5ML VIAL IV ONE (12:52)
[2020-03-01] MEDS: CLONIDINE 0.1MG TABLET PO PRN (20:27)
[2020-03-01] MEDS: ATORVASTATIN CALCIUM 40MG TABLET PO SCH (20:56)
[2020-03-01 23:26] LABS: HEMATOCRIT 26.5 % (36.0-48.0); HEMOGLOBIN 9.2 g/dL (12.0-16.0)
[2020-03-01 23:33] LABS: PROTHROMBIN TIME 10.6 sec (9.6-11.0)
[2020-03-02] VITALS (8 sets, daily range): BP systolic 122–177; BP diastolic 48–67
[2020-03-02] MEDS: IPRATROPIUM/ALBUTEROL 0.5-3(2.5)MG/3ML NEB HHN SCH ×3 (00:58→16:05)
[2020-03-02 01:06] LABS: HEPATITIS A AB IGM NEGATIVE (NEGATIVE)
[2020-03-02 01:09] LABS: HEPATITIS B SURFACE ANTIGEN NEGATIVE
[2020-03-02 01:10] LABS: HEPATITIS B SURFACE AB 3.6 mIU/mL
[2020-03-02] MEDS: CLONIDINE 0.1MG TABLET PO PRN ×2 (05:01→12:02)
[2020-03-02] MEDS: BLOOD SUGAR DIAGNOSTIC STRIP TEST SCH ×4 (06:43→20:07)
[2020-03-02] MEDS: LEVOTHYROXINE SODIUM 75MCG TABLET PO SCH (06:43)
[2020-03-02] MEDS: INSULIN LISPRO 100 UNITS/ML SUBCUT SCH ×4 (06:47→22:01)
[2020-03-02] MEDS: CITRIC ACID/SODIUM CITRATE SOLN 30ML UDC PO SCH ×3 (08:37→17:00)
[2020-03-02] MEDS: ALLOPURINOL 100 MG TABLET PO SCH (08:37)
[2020-03-02] MEDS: LEVETIRACETAM 500MG/5ML CUP PO SCH ×2 (08:38→20:07)
[2020-03-02] MEDS ORDERED: AMLODIPINE 2.5MG TABLET PO SCH (09:00)
[2020-03-02] MEDS: INSULIN GLARGINE UD 100 UNITS/ML SYR SUBCUT SCH ×2 (09:29→22:48)
[2020-03-02 11:48] LABS: BASOPHILS % 0.1 % (0.0-2.0); HEMATOCRIT. 22.1 % (36.0-48.0); HEMOGLOBIN. 7.6 g/dL (12.0-16.0); LYMPHOCYTES % 11.7 % (20.0-50.0); MEAN CORPUSCULAR HEMOGLOBIN 31.3 pg (28.0-32.0); MEAN CORPUSCULAR VOLUME 91.7 fL (81.0-99.0); MONOCYTES % 3.8 % (2.0-8.0); NEUTROPHILS % 84.4 % (40.0-76.0); PLATELET 74 x1000/uL (130-400); RED BLOOD CELL COUNT 2.41 mill/uL (4.2-5.4); RED CELL DISTRIBUTION WIDTH 14.9 % (11.6-14.6)
[2020-03-02] MEDS ORDERED: FENTANYL CITRATE/PF 50MCG/ML 2ML VIAL ONE (16:37)
[2020-03-02] MEDS ORDERED: MIDAZOLAM HCL 5 MG/5 ML VIAL ONE (16:37)
[2020-03-02] MEDS ORDERED: MIDAZOLAM HCL 5 MG/5 ML VIAL IV PRN (16:40)
[2020-03-02] MEDS ORDERED: FENTANYL CITRATE/PF 50MCG/ML 2ML VIAL IV PRN (16:42)
[2020-03-02] MEDS ORDERED: DIAZEPAM 5 MG/ML 2ML CPJ IV PRN (16:45)
[2020-03-02] MEDS ORDERED: DIAZEPAM 5 MG/ML 2ML CPJ ONE (16:49)
[2020-03-02] MEDS ORDERED: DIPHENHYDRAMINE 50MG/ML VIAL IV PRN (17:00)
[2020-03-02] MEDS ORDERED: EPINEPHRINE 0.1MG/ML (1:10,000) 10ML SYR ONE (17:00)
[2020-03-02] MEDS ORDERED: DIPHENHYDRAMINE 50MG/ML VIAL ONE ×3 (17:13→17:50)
[2020-03-02] MEDS ORDERED: LABETALOL 5MG/ML SYR 20 MG/4 ML SYRINGE IV ONE ×2 (17:54→17:59)
[2020-03-02] MEDS: ATORVASTATIN CALCIUM 40MG TABLET PO SCH (20:07)
[2020-03-02] MEDS: AMLODIPINE 5MG TABLET PO SCH (20:07)
[2020-03-02 20:27] LABS: HEMATOCRIT 31.2 % (36.0-48.0); HEMOGLOBIN 10.3 g/dL (12.0-16.0); MEAN CORPUSCULAR VOLUME 94.1 fL (81.0-99.0); PLATELET 100 x1000/uL (130-400); RED BLOOD CELL COUNT 3.31 mill/uL (4.2-5.4); RED CELL DISTRIBUTION WIDTH 15.5 % (11.6-14.6)
[2020-03-02] MEDS: EPOETIN ALFA 10000UNITS/ML VIAL SUBCUT SCH (21:59)
[2020-03-02] MEDS: CLONAZEPAM 0.5MG TABLET PO SCH (22:47)
[2020-03-02] MEDS: PANTOPRAZOLE SODIUM 40 MG/VIAL IV SCH (22:47)
[2020-03-03] VITALS (12 sets, daily range): BP systolic 111–144; BP diastolic 36–75
[2020-03-03] MEDS: IPRATROPIUM/ALBUTEROL 0.5-3(2.5)MG/3ML NEB HHN SCH ×3 (00:35→12:21)
[2020-03-03] MEDS ORDERED: SUCRALFATE 1 G/10 ML UDC PO NR (03:30)
[2020-03-03] MEDS: SODIUM CHLORIDE 0.45% 1,000 ML IV SCH (03:58)
[2020-03-03] MEDS: LEVOTHYROXINE SODIUM 75MCG TABLET PO SCH (06:33)
[2020-03-03] MEDS: BLOOD SUGAR DIAGNOSTIC STRIP TEST SCH ×4 (06:33→20:38)
[2020-03-03] MEDS: CLONAZEPAM 0.5MG TABLET PO SCH ×3 (06:33→22:46)
[2020-03-03] MEDS: INSULIN LISPRO 100 UNITS/ML SUBCUT SCH ×4 (06:40→20:39)
[2020-03-03 07:51] LABS: BASOPHILS % 0.1 % (0.0-2.0); HEMATOCRIT. 21.5 % (36.0-48.0); HEMOGLOBIN. 7.3 g/dL (12.0-16.0); MEAN CORPUSCULAR VOLUME 92.1 fL (81.0-99.0); MEAN PLATELET VOLUME 10.7 fl (7.4-10.4); MONOCYTES % 5.3 % (2.0-8.0); NEUTROPHILS % 74.6 % (40.0-76.0); PLATELET 85 x1000/uL (130-400); RED BLOOD CELL COUNT 2.34 mill/uL (4.2-5.4); RED CELL DISTRIBUTION WIDTH 15.5 % (11.6-14.6)
[2020-03-03] MEDS: PANTOPRAZOLE SODIUM 40 MG/VIAL IV SCH ×2 (08:40→21:03)
[2020-03-03] MEDS: CITRIC ACID/SODIUM CITRATE SOLN 30ML UDC PO SCH ×3 (08:40→17:03)
[2020-03-03] MEDS: AMLODIPINE 5MG TABLET PO SCH ×2 (08:41→21:06)
[2020-03-03] MEDS: ALLOPURINOL 100 MG TABLET PO SCH (08:41)
[2020-03-03] MEDS: LEVETIRACETAM 500MG/5ML CUP PO SCH ×2 (08:41→21:05)
[2020-03-03] MEDS: INSULIN GLARGINE UD 100 UNITS/ML SYR SUBCUT SCH ×2 (09:50→22:00)
[2020-03-03] MEDS: SUCRALFATE 1 G/10 ML UDC PO SCH ×3 (12:27→21:04)
[2020-03-03 15:59] LABS: HEMOGLOBIN 9.8 g/dL (12.0-16.0)
[2020-03-03 16:46] LABS: HEMATOCRIT 28.7 % (36.0-48.0); HEMOGLOBIN 9.7 g/dL (12.0-16.0)
[2020-03-03] MEDS: ATORVASTATIN CALCIUM 40MG TABLET PO SCH (21:05)
[2020-03-04] VITALS: BP 173/54
[2020-03-04 01:01] LABS: HEMATOCRIT 26.8 % (36.0-48.0); HEMOGLOBIN 9.2 g/dL (12.0-16.0)
[2020-03-04] MEDS: SODIUM CHLORIDE 0.45% 1,000 ML IV SCH ×2 (03:44→22:55)
[2020-03-04 04:00] VITALS: BP 133/45
[2020-03-04] MEDS: CLONAZEPAM 0.5MG TABLET PO SCH ×3 (06:58→23:00)
[2020-03-04] MEDS: BLOOD SUGAR DIAGNOSTIC STRIP TEST SCH ×4 (06:59→21:00)
[2020-03-04] MEDS: LEVOTHYROXINE SODIUM 75MCG TABLET PO SCH (06:59)
[2020-03-04] MEDS: SUCRALFATE 1 G/10 ML UDC PO SCH ×4 (06:59→20:44)
[2020-03-04] MEDS: INSULIN LISPRO 100 UNITS/ML SUBCUT SCH ×4 (07:01→21:00)
[2020-03-04 07:12] LABS: HEMATOCRIT 26.5 % (36.0-48.0); HEMOGLOBIN 9.1 g/dL (12.0-16.0)
[2020-03-04] MEDS: IPRATROPIUM/ALBUTEROL 0.5-3(2.5)MG/3ML NEB HHN SCH ×2 (07:42→13:01)
[2020-03-04 08:00] VITALS: BP 147/47
[2020-03-04] MEDS: LEVETIRACETAM 500MG/5ML CUP PO SCH ×2 (08:51→20:46)
[2020-03-04] MEDS: ALLOPURINOL 100 MG TABLET PO SCH (08:51)
[2020-03-04] MEDS: AMLODIPINE 5MG TABLET PO SCH ×2 (08:51→20:44)
[2020-03-04] MEDS: PANTOPRAZOLE SODIUM 40 MG/VIAL IV SCH ×2 (08:51→20:46)
[2020-03-04] MEDS: CITRIC ACID/SODIUM CITRATE SOLN 30ML UDC PO SCH ×3 (08:51→17:00)
[2020-03-04] MEDS: INSULIN GLARGINE UD 100 UNITS/ML SYR SUBCUT SCH ×2 (10:50→21:40)
[2020-03-04 12:00] VITALS: BP 132/51
[2020-03-04 16:00] VITALS: BP 155/44
[2020-03-04 20:00] VITALS: BP 114/51
[2020-03-04] MEDS: ATORVASTATIN CALCIUM 40MG TABLET PO SCH (20:44)
[2020-03-04] MEDS: ACETAMINOPHEN 325MG TABLET PO PRN (20:45)
[2020-03-05] VITALS: BP 132/53
[2020-03-05] MEDS: IPRATROPIUM/ALBUTEROL 0.5-3(2.5)MG/3ML NEB HHN SCH ×4 (01:16→21:09)
[2020-03-05 04:00] VITALS: BP 153/56
[2020-03-05 06:22] LABS: HEMATOCRIT 26.8 % (36.0-48.0); MEAN CORPUSCULAR HEMOGLOBIN 30.7 pg (28.0-32.0); MEAN CORPUSCULAR VOLUME 91.5 fL (81.0-99.0); PLATELET 97 x1000/uL (130-400); RED BLOOD CELL COUNT 2.93 mill/uL (4.2-5.4); RED CELL DISTRIBUTION WIDTH 16.3 % (11.6-14.6)
[2020-03-05] MEDS: SUCRALFATE 1 G/10 ML UDC PO SCH ×4 (06:24→21:14)
[2020-03-05] MEDS: LEVOTHYROXINE SODIUM 75MCG TABLET PO SCH (06:24)
[2020-03-05] MEDS: CLONAZEPAM 0.5MG TABLET PO SCH ×3 (06:24→21:15)
[2020-03-05 06:25] LABS: INR 1.1; PROTHROMBIN TIME 11.3 sec (9.6-11.0)
[2020-03-05] MEDS: BLOOD SUGAR DIAGNOSTIC STRIP TEST SCH ×4 (06:25→21:03)
[2020-03-05] MEDS: INSULIN LISPRO 100 UNITS/ML SUBCUT SCH ×4 (06:59→21:00)
[2020-03-05 08:00] VITALS: BP 190/55
[2020-03-05] MEDS: PANTOPRAZOLE SODIUM 40 MG/VIAL IV SCH ×2 (09:30→21:14)
[2020-03-05] MEDS: CITRIC ACID/SODIUM CITRATE SOLN 30ML UDC PO SCH ×3 (09:30→17:08)
[2020-03-05] MEDS: AMLODIPINE 5MG TABLET PO SCH ×2 (09:30→21:13)
[2020-03-05] MEDS: LEVETIRACETAM 500MG/5ML CUP PO SCH ×2 (09:30→21:15)
[2020-03-05] MEDS: ALLOPURINOL 100 MG TABLET PO SCH (09:30)
[2020-03-05] MEDS: INSULIN GLARGINE UD 100 UNITS/ML SYR SUBCUT SCH ×2 (10:00→21:23)
[2020-03-05 12:00] VITALS: BP 183/59
[2020-03-05] MEDS: CLONIDINE 0.1MG TABLET PO PRN (12:06)
[2020-03-05] MEDS: HYDRALAZINE HCL 25MG TABLET PO SCH ×2 (14:16→21:27)
[2020-03-05 16:09] VITALS: BP 150/52
[2020-03-05] MEDS: SODIUM CHLORIDE 0.45% 1,000 ML IV SCH (18:49)
[2020-03-05 20:00] VITALS: BP 150/50
[2020-03-05] MEDS: ATORVASTATIN CALCIUM 40MG TABLET PO SCH (21:14)
[2020-03-05] MEDS: EPOETIN ALFA 10000UNITS/ML VIAL SUBCUT SCH (22:02)
[2020-03-06] VITALS: BP 149/38
[2020-03-06 04:00] VITALS: BP 150/42
[2020-03-06] MEDS: BLOOD SUGAR DIAGNOSTIC STRIP TEST SCH ×4 (06:02→21:46)
[2020-03-06] MEDS: INSULIN LISPRO 100 UNITS/ML SUBCUT SCH ×4 (06:54→21:00)
[2020-03-06] MEDS: LEVOTHYROXINE SODIUM 75MCG TABLET PO SCH (06:54)
[2020-03-06] MEDS: SUCRALFATE 1 G/10 ML UDC PO SCH ×4 (06:54→21:44)
[2020-03-06] MEDS: HYDRALAZINE HCL 25MG TABLET PO SCH ×3 (06:54→21:45)
[2020-03-06] MEDS: CLONAZEPAM 0.5MG TABLET PO SCH ×3 (06:54→21:45)
[2020-03-06 07:39] LABS: HEMOGLOBIN. 8.7 g/dL (12.0-16.0); MEAN CORPUSCULAR HEMOGLOBIN 30.4 pg (28.0-32.0); MEAN CORPUSCULAR VOLUME 90.9 fL (81.0-99.0); PLATELET 111 x1000/uL (130-400); RED BLOOD CELL COUNT 2.86 mill/uL (4.2-5.4); RED CELL DISTRIBUTION WIDTH 15.7 % (11.6-14.6)
[2020-03-06 08:00] VITALS: BP 131/49
[2020-03-06] MEDS: IPRATROPIUM/ALBUTEROL 0.5-3(2.5)MG/3ML NEB HHN SCH ×2 (08:08→13:20)
[2020-03-06] MEDS: CITRIC ACID/SODIUM CITRATE SOLN 30ML UDC PO SCH ×3 (09:19→16:52)
[2020-03-06] MEDS: LEVETIRACETAM 500MG/5ML CUP PO SCH ×2 (09:19→21:45)
[2020-03-06] MEDS: AMLODIPINE 5MG TABLET PO SCH ×2 (09:19→21:45)
[2020-03-06] MEDS: PANTOPRAZOLE SODIUM 40 MG/VIAL IV SCH ×2 (09:19→21:45)
[2020-03-06] MEDS: ALLOPURINOL 100 MG TABLET PO SCH (09:19)
[2020-03-06] MEDS: INSULIN GLARGINE UD 100 UNITS/ML SYR SUBCUT SCH ×2 (10:00→22:00)
[2020-03-06 12:00] VITALS: BP 145/54
[2020-03-06 13:21] LABS: NUCLEATED RED BLOOD CELLS 1 /100 WBC
[2020-03-06 13:22] LABS: PLATELET ESTIMATE SLIGHTLY DECREASED
[2020-03-06 16:00] VITALS: BP 128/51
[2020-03-06 20:00] VITALS: BP 142/56
[2020-03-06] MEDS: ATORVASTATIN CALCIUM 40MG TABLET PO SCH (21:45)
[2020-03-07] VITALS: BP 135/52
[2020-03-07] MEDS: IPRATROPIUM/ALBUTEROL 0.5-3(2.5)MG/3ML NEB HHN SCH ×3 (01:00→12:23)
[2020-03-07 04:00] VITALS: BP 115/46
[2020-03-07] MEDS: BLOOD SUGAR DIAGNOSTIC STRIP TEST SCH ×2 (05:51→12:37)
[2020-03-07] MEDS: CLONAZEPAM 0.5MG TABLET PO SCH ×2 (05:52→14:01)
[2020-03-07] MEDS: LEVOTHYROXINE SODIUM 75MCG TABLET PO SCH (05:52)
[2020-03-07] MEDS: HYDRALAZINE HCL 25MG TABLET PO SCH ×2 (05:52→14:02)
[2020-03-07] MEDS: SUCRALFATE 1 G/10 ML UDC PO SCH ×2 (05:58→12:54)
[2020-03-07 06:27] LABS: BASOPHILS % 0.5 % (0.0-2.0); EOSINOPHILS % 3.8 % (0.0-5.0); HEMATOCRIT. 26.8 % (36.0-48.0); LYMPHOCYTES % 22.1 % (20.0-50.0); MEAN CORPUSCULAR HEMOGLOBIN 30.6 pg (28.0-32.0); MEAN CORPUSCULAR VOLUME 90.9 fL (81.0-99.0); MEAN PLATELET VOLUME 9.7 fl (7.4-10.4); MONOCYTES % 10.9 % (2.0-8.0); NEUTROPHILS % 62.7 % (40.0-76.0); PLATELET 131 x1000/uL (130-400); RED BLOOD CELL COUNT 2.95 mill/uL (4.2-5.4); RED CELL DISTRIBUTION WIDTH 16.4 % (11.6-14.6)
[2020-03-07] MEDS: INSULIN LISPRO 100 UNITS/ML SUBCUT SCH ×2 (06:38→12:15)
[2020-03-07 08:00] VITALS: BP 109/40
[2020-03-07] MEDS: AMLODIPINE 5MG TABLET PO SCH (09:00)
[2020-03-07] MEDS: CITRIC ACID/SODIUM CITRATE SOLN 30ML UDC PO SCH ×2 (09:00→09:20)
[2020-03-07] MEDS: PANTOPRAZOLE SODIUM 40 MG/VIAL IV SCH (09:20)
[2020-03-07] MEDS: LEVETIRACETAM 500MG/5ML CUP PO SCH (09:21)
[2020-03-07] MEDS: ALLOPURINOL 100 MG TABLET PO SCH (09:21)
[2020-03-07] MEDS ORDERED: POTASSIUM CHLORIDE 10MEQ TABLET SR PO NR (09:30)
[2020-03-07] MEDS: INSULIN GLARGINE UD 100 UNITS/ML SYR SUBCUT SCH (10:39)
[2020-03-07 12:00] VITALS: BP 168/58
[2020-03-07 14:25] VITALS: BP 138/76
[2020-03-07 16:00] VITALS: BP 138/76
== END 2020-03-07 17:49 | disposition home health service (06) | DRG 393 ==
LOC: ER 15:01 → 5EST 18:35 → EDBEDREQ 18:47 → EDBEDREQSVC 18:47 → ENRESERV 19:39 → 5EST 20:30 → 5WST 02-26 10:30
PROVIDERS: ADMIT Internal Medicine; ATTEND Internal Medicine
PROC: 02HV33Z Insertion of Infusion Device into Superior Vena Cava, Percutaneous Approach (ICD-10-PCS; 2020-02-27)
PROC: B548ZZA Ultrasonography of Superior Vena Cava, Guidance (ICD-10-PCS; 2020-02-27)
PROC: 30233N1 Transfusion of Nonautologous Red Blood Cells into Peripheral Vein, Percutaneous Approach (ICD-10-PCS; 2020-02-27)
PROC: 5A1D70Z Performance of Urinary Filtration, Intermittent, Less than 6 Hours Per Day (ICD-10-PCS; 2020-03-01)
PROC: 0DB68ZX Excision of Stomach, Via Natural or Artificial Opening Endoscopic, Diagnostic (ICD-10-PCS; principal; 2020-03-02)
PROC: 3E0H8GC Introduction of Other Therapeutic Substance into Lower GI, Via Natural or Artificial Opening Endoscopic (ICD-10-PCS; 2020-03-02)
DX: K63.81 Dieulafoy lesion of intestine (principal); E43 Unspecified severe protein-calorie malnutrition; N17.9 Acute kidney failure, unspecified; I13.2 Hypertensive heart and chronic kidney disease with heart failure and with stage 5 chronic kidney disease, or end stage renal disease; E87.2 Acidosis; I31.3 Pericardial effusion (noninflammatory); N18.5 Chronic kidney disease, stage 5; J96.10 Chronic respiratory failure, unspecified whether with hypoxia or hypercapnia; E86.0 Dehydration; R62.7 Adult failure to thrive; E03.9 Hypothyroidism, unspecified; D63.8 Anemia in other chronic diseases classified elsewhere; E11.22 Type 2 diabetes mellitus with diabetic chronic kidney disease; E66.9 Obesity, unspecified; G40.909 Epilepsy, unspecified, not intractable, without status epilepticus; B19.20 Unspecified viral hepatitis C without hepatic coma; J44.9 Chronic obstructive pulmonary disease, unspecified; I50.9 Heart failure, unspecified; I27.20 Pulmonary hypertension, unspecified; K57.30 Diverticulosis of large intestine without perforation or abscess without bleeding; D46.9 Myelodysplastic syndrome, unspecified; D50.0 Iron deficiency anemia secondary to blood loss (chronic); D69.6 Thrombocytopenia, unspecified; E78.5 Hyperlipidemia, unspecified; E87.6 Hypokalemia; G24.9 Dystonia, unspecified; G25.0 Essential tremor; I08.1 Rheumatic disorders of both mitral and tricuspid valves; E87.5 Hyperkalemia; I25.10 Atherosclerotic heart disease of native coronary artery without angina pectoris; K63.5 Polyp of colon; Z79.4 Long term (current) use of insulin; Z86.73 Personal history of transient ischemic attack (TIA), and cerebral infarction without residual deficits; Z68.33 Body mass index [BMI] 33.0-33.9, adult; Z87.19 Personal history of other diseases of the digestive system; Z79.899 Other long term (current) drug therapy; Z88.0 Allergy status to penicillin; Z88.8 Allergy status to other drugs, medicaments and biological substances; Z88.6 Allergy status to analgesic agent; Z91.041 Radiographic dye allergy status; K29.60 Other gastritis without bleeding
CPT/HCPCS: 36415; 36600; 71045; 74018; 74176; 76700; 76770; 76937; 78278; 80048; 80053; 81003; 82270; 82375; 82550; 82570; 82575; 82805; 82962; 83735; 83880; 84100; 84156; 84443; 84484; 85014; 85018; 85025; 85027; 85049; 85384; 86705; 86706; 86709; 86803; 86850; 86870; 86900; 86920; 87340; 88305; 88313; 93005; 93970; 94640; 96374; 97162; 97166; 99152; 99153; 99291; A9560; C1725; C9113; J0885; J1200; J1642; J1650; J1815; J2250; J2405; J2920; J3010; J3490; P9016; G0500

== ENCOUNTER 2020-04-03 13:09 | Inpatient (IN) | payer MEDICARE, MEDICAID ==
[~2020-04-03] VITALS: Ht 167.6 cm; Wt 45.8 kg
[~2020-04-03 13:09] MED LIST changes: +ASPI-1497 PO; +LEVE1000 PO; -LEVE750T4 MT
[2020-04-03] MEDS ORDERED: ONDANSETRON HCL 4MG/2ML INJ IV PRN (13:45)
[2020-04-03] MEDS ORDERED: DOCUSATE SODIUM 100MG CAPSULE PO PRN (13:45)
[2020-04-03] MEDS ORDERED: LORAZEPAM 2MG/ML CPJ IM PRN (14:00)
[2020-04-03] MEDS ORDERED: LORAZEPAM 2MG/ML CPJ IV SCH (14:15)
[2020-04-03 14:16] LABS: BG FRACTION INSPIRED OXYGEN 28; BG HCO3 ACT 19.4 mmol/L (22.0-26.0); BG PCO2 31.7 mmHg (35.0-45.0); BG PH 7.405 (7.350-7.450); BG PO2 147.4 mmHg (75.0-100.0); BG SAMPLE SITE RIGHT BRACHIAL; BG TOTAL HEMOGLOBIN < 4.5 g/dL (12.0-18.0); BG VENT MODE NASAL CANNULA
[2020-04-03] MEDS ORDERED: LIDOCAINE HCL 1% 20ML VIAL (Pyxis) INJ ONE (14:56)
[2020-04-03] MEDS ORDERED: SODIUM BICARBONATE 4% (2.4MEQ) 5ML VIAL IV ONE (14:56)
[2020-04-03 15:00] VITALS: BP 97/46
[2020-04-03 16:00] VITALS: BP 127/40
[2020-04-03] MEDS ORDERED: LEVOFLOXACIN 500MG PREMIX 100 ML IV SCH (16:00)
[2020-04-03] MEDS: IPRATROPIUM/ALBUTEROL 0.5-3(2.5)MG/3ML NEB NEB SCH ×2 (16:31→21:19)
[2020-04-03 16:34] LABS: BASOPHILS % 0.5 % (0.0-2.0); EOSINOPHILS % 1.3 % (0.0-5.0); LYMPHOCYTES % 25.9 % (20.0-50.0); MEAN CORPUSCULAR HEMOGLOBIN 30.8 pg (28.0-32.0); MEAN CORPUSCULAR VOLUME 92.6 fL (81.0-99.0); MEAN PLATELET VOLUME 9.3 fl (7.4-10.4); MONOCYTES % 5.5 % (2.0-8.0); NEUTROPHILS % 66.8 % (40.0-76.0); PLATELET 139 x1000/uL (130-400); RED CELL DISTRIBUTION WIDTH 20.9 % (11.6-14.6)
[2020-04-03 16:42] LABS: HEMATOCRIT. 12.1 % (36.0-48.0)
[2020-04-03 16:43] LABS: PARTIAL THROMBOPLASTIN TIME 30.5 sec (23.4-31.0); PROTHROMBIN TIME 10.7 sec (9.6-11.0)
[2020-04-03] MEDS: FUROSEMIDE 40MG/4ML VIAL IVP SCH (17:23)
[2020-04-03] MEDS: PANTOPRAZOLE SODIUM 40 MG/VIAL IV SCH (17:23)
[2020-04-03 20:00] VITALS: BP 110/54
[2020-04-03 20:49] LABS: TOTAL IRON BINDING CAPACITY 132 ug/dL (250-450)
[2020-04-03] MEDS: LORAZEPAM 2MG/ML CPJ IV PRN (22:35)
[2020-04-03 23:29] VITALS: BP 80/30
[2020-04-03 23:39] VITALS: BP 74/41
[2020-04-03 23:44] VITALS: BP 86/41
[2020-04-04] VITALS (19 sets, daily range): BP systolic 90–145; BP diastolic 35–86
[2020-04-04] MEDS: IPRATROPIUM/ALBUTEROL 0.5-3(2.5)MG/3ML NEB NEB SCH ×4 (01:38→20:10)
[2020-04-04] MEDS ORDERED: DEXTROSE 50% WATER 50ML SYRINGE IV PRN (06:30)
[2020-04-04 08:02] LABS: BASOPHILS % 0.5 % (0.0-2.0); EOSINOPHILS % 2.2 % (0.0-5.0); LYMPHOCYTES % 24.8 % (20.0-50.0); MEAN CORPUSCULAR VOLUME 90.2 fL (81.0-99.0); MEAN PLATELET VOLUME 9.3 fl (7.4-10.4); MONOCYTES % 7.4 % (2.0-8.0); NEUTROPHILS % 65.1 % (40.0-76.0); PLATELET 99 x1000/uL (130-400); RED BLOOD CELL COUNT 1.88 mill/uL (4.2-5.4); RED CELL DISTRIBUTION WIDTH 16.1 % (11.6-14.6)
[2020-04-04 08:11] LABS: CHLORIDE 117 mEq/L (98-107)
[2020-04-04 08:14] LABS: PARTIAL THROMBOPLASTIN TIME 30.3 sec (23.4-31.0); PROTHROMBIN TIME 10.9 sec (9.6-11.0)
[2020-04-04 08:18] LABS: LDL CHOLESTEROL 56 mg/dL (5-100)
[2020-04-04 08:20] LABS: HDL CHOLESTEROL 39 mg/dL (40-59)
[2020-04-04] MEDS: FUROSEMIDE 40MG/4ML VIAL IVP SCH (08:30)
[2020-04-04] MEDS: PANTOPRAZOLE SODIUM 40 MG/VIAL IV SCH (08:30)
[2020-04-04 08:52] LABS: HEMOGLOBIN. 5.6 g/dL (12.0-16.0)
[2020-04-04 08:53] LABS: HEMATOCRIT. 16.9 % (36.0-48.0)
[2020-04-04] MEDS: BLOOD SUGAR DIAGNOSTIC STRIP TEST SCH ×3 (12:10→21:24)
[2020-04-04] MEDS: INSULIN LISPRO 100 UNITS/ML SUBCUT SCH ×3 (12:11→21:00)
[2020-04-04] MEDS: LORAZEPAM 2MG/ML CPJ IV PRN (23:28)
[2020-04-05] VITALS (12 sets, daily range): BP systolic 87–161; BP diastolic 46–71
[2020-04-05 00:47] LABS: HEMATOCRIT 24.1 % (36.0-48.0); HEMOGLOBIN 8.1 g/dL (12.0-16.0); PLATELET 98 x1000/uL (130-400); RED BLOOD CELL COUNT 2.71 mill/uL (4.2-5.4)
[2020-04-05] MEDS: IPRATROPIUM/ALBUTEROL 0.5-3(2.5)MG/3ML NEB NEB SCH ×4 (02:37→21:00)
[2020-04-05 06:33] LABS: BASOPHILS % 0.5 % (0.0-2.0); EOSINOPHILS % 3.2 % (0.0-5.0); LYMPHOCYTES % 21.4 % (20.0-50.0); MEAN CORPUSCULAR VOLUME 87.9 fL (81.0-99.0); MEAN PLATELET VOLUME 9.6 fl (7.4-10.4); MONOCYTES % 6.7 % (2.0-8.0); NEUTROPHILS % 68.2 % (40.0-76.0); PLATELET 86 x1000/uL (130-400); RED BLOOD CELL COUNT 2.24 mill/uL (4.2-5.4); RED CELL DISTRIBUTION WIDTH 15.9 % (11.6-14.6)
[2020-04-05 06:47] LABS: HEMOGLOBIN. 6.7 g/dL (12.0-16.0)
[2020-04-05 06:48] LABS: HEMATOCRIT. 19.7 % (36.0-48.0)
[2020-04-05] MEDS: BLOOD SUGAR DIAGNOSTIC STRIP TEST SCH ×4 (06:53→21:00)
[2020-04-05] MEDS: INSULIN LISPRO 100 UNITS/ML SUBCUT SCH ×4 (06:53→21:00)
[2020-04-05] MEDS: PANTOPRAZOLE SODIUM 40 MG/VIAL IV SCH (08:36)
[2020-04-05] MEDS: FUROSEMIDE 40MG/4ML VIAL IVP SCH (08:36)
[2020-04-05 09:28] LABS: HEMATOCRIT 18.3 % (36.0-48.0); HEMOGLOBIN 6.1 g/dL (12.0-16.0)
[2020-04-05] MEDS ORDERED: LORAZEPAM 2MG/ML CPJ IV NR (10:45)
[2020-04-05] MEDS: AMLODIPINE 2.5MG TABLET PO SCH ×2 (11:16→21:00)
[2020-04-05] MEDS ORDERED: LIDOCAINE HCL 1% 20ML VIAL (Pyxis) INJ ONE (11:41)
[2020-04-05] MEDS: LEVOFLOXACIN 250MG PREMIX 50 ML IV SCH (18:01)
[2020-04-05 22:23] LABS: HEPATITIS B SURFACE AB 6.3 mIU/mL
[2020-04-05 22:33] LABS: HEPATITIS B SURFACE ANTIGEN NEGATIVE
[2020-04-05 23:03] LABS: HEPATITIS A AB IGM NEGATIVE (NEGATIVE)
[2020-04-05 23:54] LABS: HEMATOCRIT 25.3 % (36.0-48.0); HEMOGLOBIN 8.7 g/dL (12.0-16.0); MEAN CORPUSCULAR HEMOGLOBIN 30.5 pg (28.0-32.0); MEAN CORPUSCULAR VOLUME 88.4 fL (81.0-99.0); PLATELET 79 x1000/uL (130-400); RED BLOOD CELL COUNT 2.86 mill/uL (4.2-5.4); RED CELL DISTRIBUTION WIDTH 15.7 % (11.6-14.6)
[2020-04-06] VITALS (9 sets, daily range): BP systolic 118–170; BP diastolic 45–64
[2020-04-06] MEDS: IPRATROPIUM/ALBUTEROL 0.5-3(2.5)MG/3ML NEB NEB SCH ×5 (01:36→20:51)
[2020-04-06 06:02] LABS: BASOPHILS % 0.4 % (0.0-2.0); EOSINOPHILS % 2.3 % (0.0-5.0); HEMATOCRIT. 22.6 % (36.0-48.0); HEMOGLOBIN. 7.7 g/dL (12.0-16.0); MEAN CORPUSCULAR HEMOGLOBIN 30.2 pg (28.0-32.0); MEAN CORPUSCULAR VOLUME 88.2 fL (81.0-99.0); MEAN PLATELET VOLUME 9.6 fl (7.4-10.4); MONOCYTES % 7.1 % (2.0-8.0); NEUTROPHILS % 71.2 % (40.0-76.0); PLATELET 74 x1000/uL (130-400); RED BLOOD CELL COUNT 2.56 mill/uL (4.2-5.4); RED CELL DISTRIBUTION WIDTH 15.5 % (11.6-14.6)
[2020-04-06] MEDS: BLOOD SUGAR DIAGNOSTIC STRIP TEST SCH ×4 (07:10→21:19)
[2020-04-06] MEDS: INSULIN LISPRO 100 UNITS/ML SUBCUT SCH ×4 (07:40→21:00)
[2020-04-06] MEDS: PANTOPRAZOLE SODIUM 40 MG/VIAL IV SCH (09:00)
[2020-04-06] MEDS: AMLODIPINE 2.5MG TABLET PO SCH ×2 (09:00→21:34)
[2020-04-06 16:02] LABS: HEMATOCRIT 22.8 % (36.0-48.0); HEMOGLOBIN 7.8 g/dL (12.0-16.0)
[2020-04-06 16:09] LABS: PROTHROMBIN TIME 10.8 sec (9.6-11.0)
[2020-04-06] MEDS ORDERED: MIDAZOLAM HCL 2 MG/2 ML VIAL ONE ×4 (17:16→18:00)
[2020-04-06] MEDS ORDERED: DIPHENHYDRAMINE 50MG/ML VIAL ONE (17:18)
[2020-04-06] MEDS ORDERED: FENTANYL CITRATE/PF 50MCG/ML 2ML VIAL ONE (17:20)
[2020-04-06] MEDS ORDERED: PROPOFOL 200MG/20ML VIAL IV ONE (17:35)
[2020-04-06] MEDS ORDERED: EPINEPHRINE 0.1MG/ML (1:10,000) 10ML SYR ONE (18:10)
[2020-04-06] MEDS ORDERED: ESMOLOL HCL 10MG/ML 10ML VIAL IV ONE (18:33)
[2020-04-06] MEDS ORDERED: HYDRALAZINE 20MG/ML VIAL ONE (18:38)
[2020-04-06] MEDS ORDERED: SODIUM CHLORIDE 0.9% 10ML VIAL ONE (18:38)
[2020-04-06] MEDS ORDERED: EPINEPHRINE 0.1MG/ML (1:10,000) 10ML SYR IV SCH (19:30)
[2020-04-06] MEDS ORDERED: RACEPINEPHRINE 2.25% 0.5ML NEB VIAL HHN SCH (20:15)
[2020-04-07] VITALS: BP 133/55
[2020-04-07] MEDS: IPRATROPIUM/ALBUTEROL 0.5-3(2.5)MG/3ML NEB NEB SCH ×4 (01:12→21:05)
[2020-04-07 02:35] LABS: HEMATOCRIT. 27.2 % (36.0-48.0); HEMOGLOBIN. 9.2 g/dL (12.0-16.0); MEAN CORPUSCULAR HEMOGLOBIN 30.2 pg (28.0-32.0); MEAN CORPUSCULAR VOLUME 89.5 fL (81.0-99.0); MEAN PLATELET VOLUME 9.5 fl (7.4-10.4); PLATELET 78 x1000/uL (130-400); RED BLOOD CELL COUNT 3.04 mill/uL (4.2-5.4); RED CELL DISTRIBUTION WIDTH 15.2 % (11.6-14.6)
[2020-04-07] MEDS: INSULIN LISPRO 100 UNITS/ML SUBCUT SCH ×4 (05:45→20:22)
[2020-04-07] MEDS: BLOOD SUGAR DIAGNOSTIC STRIP TEST SCH ×4 (05:45→20:22)
[2020-04-07 08:00] VITALS: BP 109/41
[2020-04-07 08:40] LABS: BASOPHILS % 0.3 % (0.0-2.0); EOSINOPHILS % 0.3 % (0.0-5.0); HEMATOCRIT. 28.2 % (36.0-48.0); HEMOGLOBIN. 9.6 g/dL (12.0-16.0); LYMPHOCYTES % 14.1 % (20.0-50.0); MEAN CORPUSCULAR HEMOGLOBIN 30.5 pg (28.0-32.0); MEAN CORPUSCULAR VOLUME 89.8 fL (81.0-99.0); MEAN PLATELET VOLUME 9.9 fl (7.4-10.4); MONOCYTES % 7.5 % (2.0-8.0); NEUTROPHILS % 77.8 % (40.0-76.0); PLATELET 79 x1000/uL (130-400); RED BLOOD CELL COUNT 3.14 mill/uL (4.2-5.4); RED CELL DISTRIBUTION WIDTH 15.3 % (11.6-14.6)
[2020-04-07] MEDS: PANTOPRAZOLE SODIUM 40 MG/VIAL IV SCH (08:49)
[2020-04-07] MEDS: AMLODIPINE 2.5MG TABLET PO SCH ×2 (08:49→20:48)
[2020-04-07 11:53] VITALS: BP 134/50
[2020-04-07 12:49] LABS: PLATELET ESTIMATE DECREASED
[2020-04-07 17:00] VITALS: BP 100/39
[2020-04-07] MEDS: LEVOFLOXACIN 250MG PREMIX 50 ML IV SCH (18:31)
[2020-04-07 20:00] VITALS: BP 111/43
[2020-04-08] VITALS: BP 113/51
[2020-04-08] MEDS: LORAZEPAM 2MG/ML CPJ IV PRN (00:55)
[2020-04-08] MEDS: IPRATROPIUM/ALBUTEROL 0.5-3(2.5)MG/3ML NEB NEB SCH ×4 (02:38→19:48)
[2020-04-08 04:00] VITALS: BP 118/44
[2020-04-08] MEDS: INSULIN LISPRO 100 UNITS/ML SUBCUT SCH ×4 (06:04→21:00)
[2020-04-08] MEDS: BLOOD SUGAR DIAGNOSTIC STRIP TEST SCH ×4 (06:04→21:00)
[2020-04-08 08:00] VITALS: BP 113/62
[2020-04-08 08:54] LABS: BASOPHILS % 0.5 % (0.0-2.0); EOSINOPHILS % 5.1 % (0.0-5.0); LYMPHOCYTES % 29.7 % (20.0-50.0); MEAN CORPUSCULAR HEMOGLOBIN 30.7 pg (28.0-32.0); MEAN CORPUSCULAR VOLUME 90.9 fL (81.0-99.0); MEAN PLATELET VOLUME 10.1 fl (7.4-10.4); MONOCYTES % 8.4 % (2.0-8.0); NEUTROPHILS % 56.3 % (40.0-76.0); PLATELET 67 x1000/uL (130-400); RED BLOOD CELL COUNT 2.59 mill/uL (4.2-5.4); RED CELL DISTRIBUTION WIDTH 15.6 % (11.6-14.6)
[2020-04-08 09:04] LABS: HEMATOCRIT. 23.6 % (36.0-48.0)
[2020-04-08] MEDS: PANTOPRAZOLE SODIUM 40 MG/VIAL IV SCH (10:05)
[2020-04-08] MEDS: AMLODIPINE 2.5MG TABLET PO SCH ×2 (10:06→21:00)
[2020-04-08 12:00] VITALS: BP 138/52
[2020-04-08 16:00] VITALS: BP 142/52
[2020-04-08 20:00] VITALS: BP 149/57
[2020-04-09] VITALS: BP 164/55
[2020-04-09] MEDS: ACETAMINOPHEN 325MG TABLET PO PRN (00:02)
[2020-04-09 04:00] VITALS: BP 142/53
[2020-04-09 06:25] LABS: BASOPHILS % 0.6 % (0.0-2.0); EOSINOPHILS % 4.7 % (0.0-5.0); HEMATOCRIT. 24.5 % (36.0-48.0); HEMOGLOBIN. 8.3 g/dL (12.0-16.0); LYMPHOCYTES % 27.1 % (20.0-50.0); MEAN CORPUSCULAR HEMOGLOBIN 30.6 pg (28.0-32.0); MEAN CORPUSCULAR VOLUME 90.1 fL (81.0-99.0); MEAN PLATELET VOLUME 10.2 fl (7.4-10.4); MONOCYTES % 9.6 % (2.0-8.0); PLATELET 74 x1000/uL (130-400); RED BLOOD CELL COUNT 2.72 mill/uL (4.2-5.4); RED CELL DISTRIBUTION WIDTH 15.5 % (11.6-14.6)
[2020-04-09] MEDS: INSULIN LISPRO 100 UNITS/ML SUBCUT SCH ×4 (07:40→21:00)
[2020-04-09] MEDS: BLOOD SUGAR DIAGNOSTIC STRIP TEST SCH ×4 (07:44→20:43)
[2020-04-09 08:00] VITALS: BP 150/63
[2020-04-09] MEDS: AMLODIPINE 2.5MG TABLET PO SCH ×2 (08:50→20:43)
[2020-04-09] MEDS: PANTOPRAZOLE SODIUM 40 MG/VIAL IV SCH (08:50)
[2020-04-09 12:00] VITALS: BP 139/58
[2020-04-09 16:00] VITALS: BP 157/62
[2020-04-09 20:00] VITALS: BP 168/47
[2020-04-09] MEDS: IPRATROPIUM/ALBUTEROL 0.5-3(2.5)MG/3ML NEB NEB SCH (20:42)
[2020-04-10] VITALS: BP 163/59
[2020-04-10] MEDS: IPRATROPIUM/ALBUTEROL 0.5-3(2.5)MG/3ML NEB NEB SCH ×4 (01:19→21:22)
[2020-04-10] MEDS: ACETAMINOPHEN 325MG TABLET PO PRN (01:34)
[2020-04-10 04:00] VITALS: BP 130/57
[2020-04-10] MEDS: BLOOD SUGAR DIAGNOSTIC STRIP TEST SCH ×3 (06:58→20:12)
[2020-04-10] MEDS: INSULIN LISPRO 100 UNITS/ML SUBCUT SCH ×4 (06:59→20:12)
[2020-04-10 08:00] VITALS: BP 160/64
[2020-04-10 10:43] LABS: BASOPHILS % 0.8 % (0.0-2.0); EOSINOPHILS % 4.8 % (0.0-5.0); HEMATOCRIT. 27.4 % (36.0-48.0); HEMOGLOBIN. 9.1 g/dL (12.0-16.0); LYMPHOCYTES % 22.5 % (20.0-50.0); MEAN CORPUSCULAR HEMOGLOBIN 30.6 pg (28.0-32.0); MEAN CORPUSCULAR VOLUME 92.2 fL (81.0-99.0); MEAN PLATELET VOLUME 9.5 fl (7.4-10.4); MONOCYTES % 9.2 % (2.0-8.0); NEUTROPHILS % 62.7 % (40.0-76.0); PLATELET 89 x1000/uL (130-400); RED BLOOD CELL COUNT 2.97 mill/uL (4.2-5.4); RED CELL DISTRIBUTION WIDTH 15.5 % (11.6-14.6)
[2020-04-10 10:48] LABS: INR 1.1; PARTIAL THROMBOPLASTIN TIME 34.4 sec (23.4-31.0); PROTHROMBIN TIME 11.1 sec (9.6-11.0)
[2020-04-10 12:00] VITALS: BP 147/68
[2020-04-10] MEDS: AMLODIPINE 2.5MG TABLET PO SCH ×2 (12:11→20:37)
[2020-04-10] MEDS: PANTOPRAZOLE SODIUM 40 MG/VIAL IV SCH (12:11)
[2020-04-10 16:00] VITALS: BP 162/69
[2020-04-10] MEDS: CLONIDINE 0.1MG TABLET PO PRN (18:07)
[2020-04-10 20:00] VITALS: BP 162/58
[2020-04-11] VITALS: BP 126/60
[2020-04-11] MEDS: IPRATROPIUM/ALBUTEROL 0.5-3(2.5)MG/3ML NEB NEB SCH ×2 (03:00→21:00)
[2020-04-11 04:00] VITALS: BP 130/49
[2020-04-11] MEDS: BLOOD SUGAR DIAGNOSTIC STRIP TEST SCH ×4 (06:01→20:23)
[2020-04-11] MEDS: INSULIN LISPRO 100 UNITS/ML SUBCUT SCH ×4 (06:01→20:23)
[2020-04-11 06:37] LABS: BASOPHILS % 0.6 % (0.0-2.0); EOSINOPHILS % 4.7 % (0.0-5.0); HEMATOCRIT. 24.2 % (36.0-48.0); HEMOGLOBIN. 8.1 g/dL (12.0-16.0); LYMPHOCYTES % 24.6 % (20.0-50.0); MEAN CORPUSCULAR HEMOGLOBIN 30.2 pg (28.0-32.0); MEAN CORPUSCULAR VOLUME 90.7 fL (81.0-99.0); MEAN PLATELET VOLUME 9.9 fl (7.4-10.4); MONOCYTES % 9.9 % (2.0-8.0); NEUTROPHILS % 60.2 % (40.0-76.0); PLATELET 77 x1000/uL (130-400); RED BLOOD CELL COUNT 2.67 mill/uL (4.2-5.4); RED CELL DISTRIBUTION WIDTH 15.5 % (11.6-14.6)
[2020-04-11] MEDS ORDERED: LIDOCAINE HCL 1% 20ML VIAL (Pyxis) INJ ONE (07:53)
[2020-04-11] MEDS ORDERED: SODIUM BICARBONATE 4% (2.4MEQ) 5ML VIAL IV ONE (07:53)
[2020-04-11 08:00] VITALS: BP 122/30
[2020-04-11] MEDS: AMLODIPINE 2.5MG TABLET PO SCH ×2 (08:39→20:23)
[2020-04-11] MEDS: PANTOPRAZOLE SODIUM 40 MG/VIAL IV SCH (08:39)
[2020-04-11] MEDS ORDERED: FENTANYL CITRATE/PF 50MCG/ML 2ML VIAL ONE ×2 (11:40→11:54)
[2020-04-11] MEDS ORDERED: PROPOFOL 200MG/20ML VIAL IV ONE (11:54)
[2020-04-11] MEDS ORDERED: MIDAZOLAM HCL 2 MG/2 ML VIAL ONE ×2 (11:54→11:58)
[2020-04-11] MEDS ORDERED: SODIUM CHLORIDE 0.9% 1,000 ML IV ONE (12:27)
[2020-04-11] MEDS ORDERED: MORPHINE SULFATE 2 MG/ML CPJ (NOT FOR IM USE) IV PRN (12:30)
[2020-04-11] MEDS ORDERED: ONDANSETRON HCL 4MG/2ML INJ IV PRN (12:30)
[2020-04-11] MEDS ORDERED: HYDROMORPHONE HCL/PF 2MG/ML CPJ IV PRN (12:30)
[2020-04-11] MEDS: CLONIDINE 0.1MG TABLET PO PRN (14:58)
[2020-04-11] MEDS ORDERED: DESMOPRESSIN ACETATE IVPB 26 MCG in SODIUM CHLORIDE 0.9% 50 ML IV ONE (15:15)
[2020-04-11 17:00] VITALS: BP 110/70
[2020-04-11 20:00] VITALS: BP 123/58
[2020-04-12] VITALS: BP 124/27
[2020-04-12] MEDS: IPRATROPIUM/ALBUTEROL 0.5-3(2.5)MG/3ML NEB NEB SCH ×3 (02:15→14:46)
[2020-04-12] MEDS: BLOOD SUGAR DIAGNOSTIC STRIP TEST SCH ×3 (06:55→17:10)
[2020-04-12] MEDS: INSULIN LISPRO 100 UNITS/ML SUBCUT SCH ×3 (07:36→17:40)
[2020-04-12 07:53] VITALS: BP 149/59
[2020-04-12] MEDS: PANTOPRAZOLE SODIUM 40 MG/VIAL IV SCH (09:00)
[2020-04-12] MEDS: AMLODIPINE 2.5MG TABLET PO SCH (09:00)
[2020-04-12 10:04] LABS: BASOPHILS % 0.7 % (0.0-2.0); HEMATOCRIT. 23.2 % (36.0-48.0); HEMOGLOBIN. 7.8 g/dL (12.0-16.0); MEAN CORPUSCULAR HEMOGLOBIN 30.5 pg (28.0-32.0); MEAN PLATELET VOLUME 9.5 fl (7.4-10.4); MONOCYTES % 7.8 % (2.0-8.0); NEUTROPHILS % 67.5 % (40.0-76.0); PLATELET 75 x1000/uL (130-400); RED BLOOD CELL COUNT 2.55 mill/uL (4.2-5.4); RED CELL DISTRIBUTION WIDTH 14.9 % (11.6-14.6)
[2020-04-12 12:00] VITALS: BP 157/47
[2020-04-12 16:00] VITALS: BP 167/60
[2020-04-12 16:36] VITALS: BP 167/60
== END 2020-04-12 19:30 | disposition home health service (06) | DRG 377 ==
LOC: 8WST 13:09
PROVIDERS: ADMIT Internal Medicine; ATTEND Internal Medicine
PROC: 05HY33Z Insertion of Infusion Device into Upper Vein, Percutaneous Approach (ICD-10-PCS; 2020-04-03)
PROC: B54MZZA Ultrasonography of Right Upper Extremity Veins, Guidance (ICD-10-PCS; 2020-04-03)
PROC: 30233N1 Transfusion of Nonautologous Red Blood Cells into Peripheral Vein, Percutaneous Approach (ICD-10-PCS; 2020-04-04)
PROC: 05HY33Z Insertion of Infusion Device into Upper Vein, Percutaneous Approach (ICD-10-PCS; 2020-04-05)
PROC: B54MZZA Ultrasonography of Right Upper Extremity Veins, Guidance (ICD-10-PCS; 2020-04-05)
PROC: 5A1D70Z Performance of Urinary Filtration, Intermittent, Less than 6 Hours Per Day (ICD-10-PCS; 2020-04-05)
PROC: 0DJ08ZZ Inspection of Upper Intestinal Tract, Via Natural or Artificial Opening Endoscopic (ICD-10-PCS; principal; 2020-04-06)
PROC: 5A1D70Z Performance of Urinary Filtration, Intermittent, Less than 6 Hours Per Day (ICD-10-PCS; 2020-04-06)
PROC: 5A1D70Z Performance of Urinary Filtration, Intermittent, Less than 6 Hours Per Day (ICD-10-PCS; 2020-04-08)
PROC: 02PYX3Z Removal of Infusion Device from Great Vessel, External Approach (ICD-10-PCS; 2020-04-11)
PROC: 02HV33Z Insertion of Infusion Device into Superior Vena Cava, Percutaneous Approach (ICD-10-PCS; 2020-04-11)
PROC: 0JH63XZ Insertion of Tunneled Vascular Access Device into Chest Subcutaneous Tissue and Fascia, Percutaneous Approach (ICD-10-PCS; 2020-04-11)
PROC: B518ZZA Fluoroscopy of Superior Vena Cava, Guidance (ICD-10-PCS; 2020-04-11)
PROC: 5A1D70Z Performance of Urinary Filtration, Intermittent, Less than 6 Hours Per Day (ICD-10-PCS; 2020-04-11)
DX: K29.61 Other gastritis with bleeding (principal); J96.21 Acute and chronic respiratory failure with hypoxia; I50.33 Acute on chronic diastolic (congestive) heart failure; E43 Unspecified severe protein-calorie malnutrition; N18.6 End stage renal disease; I13.2 Hypertensive heart and chronic kidney disease with heart failure and with stage 5 chronic kidney disease, or end stage renal disease; N17.9 Acute kidney failure, unspecified; E87.2 Acidosis; I47.2 Ventricular tachycardia; D64.9 Anemia, unspecified; K92.1 Melena; B18.2 Chronic viral hepatitis C; E03.9 Hypothyroidism, unspecified; E78.5 Hyperlipidemia, unspecified; E66.9 Obesity, unspecified; I27.20 Pulmonary hypertension, unspecified; G40.909 Epilepsy, unspecified, not intractable, without status epilepticus; J44.9 Chronic obstructive pulmonary disease, unspecified; I49.3 Ventricular premature depolarization; B19.20 Unspecified viral hepatitis C without hepatic coma; E87.5 Hyperkalemia; G24.9 Dystonia, unspecified; I49.1 Atrial premature depolarization; D69.6 Thrombocytopenia, unspecified; Z20.828 Contact with and (suspected) exposure to other viral communicable diseases; E11.22 Type 2 diabetes mellitus with diabetic chronic kidney disease; Z93.0 Tracheostomy status; Z86.73 Personal history of transient ischemic attack (TIA), and cerebral infarction without residual deficits; Z88.0 Allergy status to penicillin; Z88.8 Allergy status to other drugs, medicaments and biological substances; Z91.041 Radiographic dye allergy status; Z79.899 Other long term (current) drug therapy; Z91.15 Patient's noncompliance with renal dialysis; Z79.4 Long term (current) use of insulin; Z87.891 Personal history of nicotine dependence; Z88.5 Allergy status to narcotic agent; Z68.29 Body mass index [BMI] 29.0-29.9, adult
CPT/HCPCS: 36415; 36589; 36600; 71045; 76937; 77001; 80048; 80053; 80061; 82375; 82805; 82962; 83036; 83540; 83550; 84443; 84484; 85014; 85018; 85025; 85027; 86705; 86706; 86709; 86803; 86850; 86870; 86900; 86920; 87340; 93005; 93306; 93970; 94640; 97110; 97162; 97166; 97530; 97535; C1725; C1750; C1752; C1769; C1887; C9113; J0360; J1200; J1815; J1940; J1956; J2060; J2250; J2597; J2704; J3010; J3490; P9016; U0003-CS

== ENCOUNTER 2020-11-26 21:44 | Emergency (ER) | payer MEDICARE, MEDICAID ==
[~2020-11-26] VITALS: Ht 157.5 cm; Wt 86.0 kg
[~2020-11-26 21:44] MED LIST changes: -MONT10TA26 MT; +MONT10TA32 MT
[2020-11-26] MEDS ORDERED: ONDANSETRON HCL 4MG/2ML INJ IV STA (22:16)
[2020-11-26] MEDS ORDERED: KETOROLAC 60MG/2ML VIAL IM STA (22:16)
[2020-11-26] MEDS ORDERED: ALBUTEROL (0.5%) 2.5MG/0.5ML NEB HHN ONE (22:30)
[2020-11-26] MEDS ORDERED: DIPHENHYDRAMINE 25MG CAPSULE PO ONE (22:30)
[2020-11-26 23:47] LABS: BASOPHILS % 0.3 % (0.0-2.0); EOSINOPHILS % 0.6 % (0.0-5.0); HEMATOCRIT. 30.7 % (36.0-48.0); HEMOGLOBIN. 10.1 g/dL (12.0-16.0); LYMPHOCYTES % 19.9 % (20.0-50.0); MEAN CORPUSCULAR HEMOGLOBIN 29.4 pg (28.0-32.0); MEAN CORPUSCULAR VOLUME 89.2 fL (81.0-99.0); MEAN PLATELET VOLUME 10.2 fl (7.4-10.4); NEUTROPHILS % 70.2 % (40.0-76.0); PLATELET 140 x1000/uL (130-400); RED BLOOD CELL COUNT 3.44 mill/uL (4.2-5.4); RED CELL DISTRIBUTION WIDTH 15.4 % (11.6-14.6)
[2020-11-26 23:53] LABS: CHLORIDE 98 mEq/L (98-107)
[2020-11-27 00:01] LABS: PROTHROMBIN TIME 10.8 sec (9.6-11.0)
[2020-11-27] MEDS ORDERED: DEXTROSE 50% WATER 50ML SYRINGE IV ONE (00:45)
[2020-11-27] MEDS ORDERED: SODIUM BICARBONATE 8.4% 1 MEQ/ML 50ML SYR IV ONE (00:45)
[2020-11-27] MEDS ORDERED: CALCIUM CHLORIDE 1GM/10ML SYR IV ONE (00:45)
[2020-11-27] MEDS ORDERED: INSULIN REGULAR (HUMULIN R) 300UNITS/3ML VIAL IV ONE (00:45)
[2020-11-27] MEDS ORDERED: METRONIDAZOLE 500 MG PREMIX 100 ML IV NR (03:30)
[2020-11-27] MEDS ORDERED: METR500T MT (03:53)
[2020-11-27] MEDS ORDERED: CIPR500T5 MT (03:53)
[2020-11-27] MEDS ORDERED: CEFTRIAXONE 1 G PREMIX 50 ML IV NR (04:00)
[2020-11-27 05:35] VITALS: BP 112/46
[2020-11-27] MEDS ORDERED: IOHEXOL-300 100 ML BOTTLE ONE (06:47)
[2020-11-27] MEDS ORDERED: CIPR500S3 PO (14:27)
[2020-11-27] MEDS ORDERED: METR-167 MT (14:27)
== END 2020-11-27 05:44 | disposition home or self-care (01) ==
LOC: ER 21:44 → CANBEDREQ 11-27 03:28 → ER 11-27 05:44
DX: K57.92 Diverticulitis of intestine, part unspecified, without perforation or abscess without bleeding (principal); J45.909 Unspecified asthma, uncomplicated; J44.9 Chronic obstructive pulmonary disease, unspecified; E11.9 Type 2 diabetes mellitus without complications; I51.9 Heart disease, unspecified; D64.9 Anemia, unspecified; Z86.73 Personal history of transient ischemic attack (TIA), and cerebral infarction without residual deficits; Z79.899 Other long term (current) drug therapy; Z88.0 Allergy status to penicillin; Z88.8 Allergy status to other drugs, medicaments and biological substances; Z91.041 Radiographic dye allergy status
CPT/HCPCS: 36415; 74177; 80053; 82962; 83605; 83690; 85025; 85610; 93005; 94640; 96365; 96367; 96372; 96375; 99285; J0696; J1815; J1885; J2405; J3490; Q0163; Q9967